=== PATIENT | female | born 1985 | race Caucasian/White ===

== ENCOUNTER 2017-01-25 09:48 | Emergency (ER) | payer OTHER ==
[2017-01-25] MEDS ORDERED: HYDROmorphone 1 MG/ML 1 ML SYRINGE IVP STA (10:01)
[2017-01-25] MEDS ORDERED: KETOROLAC 30 MG/ML 1 ML VIAL IVP STA (10:01)
[2017-01-25] MEDS ORDERED: SODIUM CHLORIDE 0.9% 1,000 ML IV STA (10:01)
[2017-01-25] MEDS ORDERED: ONDANSETRON 4 MG/2 ML VIAL IVP STA (10:01)
--- NOTE | 2017-01-25 10:03 | ED ---
Abdominal Pain HPI - General Chief Complaint: Abdominal Pain Stated Complaint: abd pain Time Seen by Provider: 01/25/17 09:53 Source: patient, RN notes reviewed Mode of arrival: ambulatory Limitations: no limitations - History of Present Illness Initial Comments: 31-year-old female presents emergency Department chief complaint of right flank pain. Patient states a sudden onset of pain. Patient states her proximal one hour ago after she urinated. Patient states that nothing seems to make painful better or worse. Patient had nausea vomiting. Denies any dysuria, hematuria, diarrhea constipation. Patient had a prior tubal ligation other abdominal surgeries. Patient denies any chest pain or shortness breath no fever no chills. - Related Data Home Medications Medication Instructions Recorded Confirmed ALPRAZolam [Xanax] 0.25 mg PO DAILY PRN 01/25/17 01/25/17 Carisoprodol [Soma] 350 mg PO TID PRN 01/25/17 01/25/17 Ergocalciferol [Vitamin D2] 50,000 unit PO TU 01/25/17 01/25/17 HYDROcodone/APAP 5-325MG [[place] 1 tab PO Q4HR PRN 01/25/17 01/25/17 5-325] Ibuprofen [Motrin] 800 mg PO Q6H PRN 01/25/17 01/25/17 Previous Rx's Medication Instructions Recorded Ketorolac [Toradol] 10 mg PO Q8HR #15 tab 01/25/17 Ondansetron Odt [Zofran Odt] 4 mg PO Q8HR PRN #10 tab 01/25/17 Allergies Allergy/AdvReac Type Severity Reaction Status Date / Time tramadol Allergy Itching Verified 01/25/17 10:18 Review of Systems ROS Statement: Those systems with pertinent positive or pertinent negative responses have been documented in the HPI. ROS Other: All systems not noted in ROS Statement are negative. Past Medical History Additional Past Medical History / Comment(s): ovarian cysts, chronic neck pain History of Any Multi-Drug Resistant Organisms: None Reported Past Surgical History: Tubal Ligation Past Psychological History: No Psychological Hx Reported Smoking Status: Never smoker Past Alcohol Use History: None Reported Past Drug Use History: None Reported General Exam Limitations: no limitations General appearance: alert, in no apparent distress Head exam: Present: atraumatic, normocephalic, normal inspection Respiratory exam: Present: normal lung sounds bilaterally. Absent: respiratory distress, wheezes, rales, rhonchi, stridor Cardiovascular Exam: Present: regular rate, normal rhythm, normal heart sounds. Absent: systolic murmur, diastolic murmur, rubs, gallop, clicks GI/Abdominal exam: Present: soft, tenderness (Mild tenderness to the right flank with the patient's area reported pain), normal bowel sounds. Absent: distended, guarding, rebound, rigid Back exam: Present: CVA tenderness (R). Absent: CVA tenderness (L) Neurological exam: Present: alert, oriented X3, CN II-XII intact Skin exam: Present: warm, dry, intact, normal color. Absent: rash Course Vital Signs 01/25/17 01/25/17 09:50 10:30 Temperature 98.2 F Pulse Rate 94 74 Respiratory 20 18 Rate Blood Pressure 141/78 129/63 O2 Sat by Pulse 100 99 Oximetry Medical Decision Making - Medical Decision Making 31-year-old female presented emergency from for right flank pain and some not. Patient's presentation appears to be related to kidney stone. There was no definite stone on CT. Patient has no evidence of acute appendicitis. There is some free fluid and flicker changes in the over a possible ovarian cyst. Patient's pain is improved at this time. Patient will be discharged with pain medication return parameters were discussed. Patient also updated on results of CT including hepatic changes, esophageal changes. Patient will follow-up with Dr. Nash for nonemergent follow-up. - Lab Data Result diagrams: 01/25/17 10:00 01/25/17 10:00 Lab Results 01/25/17 01/25/17 01/25/17 Range/Units 10:00 10:00 10:00 WBC 8.4 (3.8-10.6) k/uL RBC 4.90 (3.80-5.40) m/uL Hgb 13.2 (11.4-16.0) gm/dL Hct 40.7 (34.0-46.0) % MCV 83.2 (80.0-100.0) fL MCH 27.0 (25.0-35.0) pg MCHC 32.5 (31.0-37.0) g/dL RDW 14.5 (11.5-15.5) % Plt Count 323 (150-450) k/uL Neutrophils % 58 % Lymphocytes % 32 % Monocytes % 4 % Eosinophils % 2 % Basophils % 1 % Neutrophils # 4.9 (1.3-7.7) k/uL Lymphocytes # 2.7 (1.0-4.8) k/uL Monocytes # 0.4 (0-1.0) k/uL Eosinophils # 0.2 (0-0.7) k/uL Basophils # 0.1 (0-0.2) k/uL Sodium 141 (137-145) mmol/L Potassium 4.1 (3.5-5.1) mmol/L Chloride 105 (98-107) mmol/L Carbon Dioxide 26 (22-30) mmol/L Anion Gap 10 mmol/L BUN 16 (7-17) mg/dL Creatinine 0.57 (0.52-1.04) mg/dL Est GFR (MDRD) Af Amer >60 (>60 ml/min/1.73 sqM) Est GFR (MDRD) Non-Af >60 (>60 ml/min/1.73 sqM) Glucose 112 H (74-99) mg/dL Calcium 9.4 (8.4-10.2) mg/dL Total Bilirubin 0.6 (0.2-1.3) mg/dL AST 21 (14-36) U/L ALT 41 (9-52) U/L Alkaline Phosphatase 80 (38-126) U/L Total Protein 8.2 (6.3-8.2) g/dL Albumin 4.7 (3.5-5.0) g/dL Amylase 43 (30-110) U/L Lipase 51 (23-300) U/L Urine Color Yellow Urine Appearance Clear (Clear) Urine pH 6.0 (5.0-8.0) Ur Specific [place] 1.019 (1.001-1.035) Urine Protein Negative (Negative) Urine Glucose (UA) Negative (Negative) Urine Ketones Negative (Negative) Urine Blood Negative (Negative) Urine Nitrite Negative (Negative) Urine Bilirubin Negative (Negative) Urine Urobilinogen <2.0 (<2.0) mg/dL Ur Leukocyte Esterase Trace H (Negative) Urine WBC 1 (0-5) /hpf Ur Squamous Epith Cells 3 (0-4) /hpf Urine Mucus Rare H (None) /hpf Disposition Clinical Impression: Right flank pain Disposition: HOME SELF-CARE Condition: Stable Instructions: Flank Pain (ED) Additional Instructions: Please follow up with your primary care physician for follow-up CT for ultrasound of the liver.Please return to the Emergency Department if symptoms worsen or any other concerns. Prescriptions: Ketorolac [Toradol] 10 mg PO Q8HR #15 tab Ondansetron Odt [Zofran Odt] 4 mg PO Q8HR PRN #10 tab PRN Reason: Nausea Time of Disposition: 12:00
[2017-01-25 10:17] LABS: Basophils % (A) 1 %; CH 27.1; CHCM 32.7; Eosinophils % (A) 2 %; HCT 40.7 % (34.0-46.0); HDW 2.99; HGB 13.2 gm/dL (11.4-16.0); Luc % (Auto) 2; Lymphocytes % (A) 32 %; MCHC 32.5 g/dL (31.0-37.0); MCV 83.2 fL (80.0-100.0); Mean Platelet Volume 7.1; Monocytes % (A) 4 %; Neutrophils % (A) 58 %; RDW 14.5 % (11.5-15.5); WBC 8.4 k/uL (3.8-10.6)
[2017-01-25 10:18] LABS: Basophils # (A) 0.1 k/uL (0-0.2); Eosinophils # (A) 0.2 k/uL (0-0.7); Luc # (Auto) 0.19; Lymphocytes # (A) 2.7 k/uL (1.0-4.8); Monocytes # (A) 0.4 k/uL (0-1.0); Neutrophils # (A) 4.9 k/uL (1.3-7.7)
[2017-01-25 10:25] LABS: ALT 41 U/L (9-52); AST 21 U/L (14-36); Alkaline Phosphatase 80 U/L (38-126); Amylase 43 U/L (30-110); Anion Gap 10 mmol/L; Blood Urea Nitrogen 16 mg/dL (7-17); Calcium 9.4 mg/dL (8.4-10.2); Carbon Dioxide 26 mmol/L (22-30); Chloride 105 mmol/L (98-107); Glucose 112 mg/dL (74-99); Non-African American GFR(MDRD) >60 (>60 ml/min/1.73 sqM); Potassium 4.1 mmol/L (3.5-5.1); Sodium 141 mmol/L (137-145); Total Bilirubin 0.6 mg/dL (0.2-1.3); Total Protein 8.2 g/dL (6.3-8.2)
[2017-01-25 10:27] LABS: Appearance,Urine Clear (Clear); Bilirubin,Urine Negative (Negative); Glucose,Urine (UA) Negative (Negative); Ketones,Urine Negative (Negative); Leukocyte Esterase,Urine Trace (Negative); Mucus,Urine Rare /hpf; Nitrite,Urine Negative (Negative); Particle Count 2457; Protein,Urine Negative (Negative); Specific Gravity,Urine 1.019 (1.001-1.035); Squamous Epithelial Cell,Urine 3 /hpf (0-4); UA Billing (MACRO vs. MICRO) MICRO; Urobilinogen,Urine <2.0 mg/dL (<2.0); WBC,Urine 1 /hpf (0-5)
--- NOTE | 2017-01-25 11:05 | XR ---
Abdomen HISTORY: Abdominal pain, right lower quadrant pain Frontal view of the abdomen submitted on 2 images No comparisons Lung bases are clear. There is no pneumoperitoneum or bowel obstruction. Mild spinal curvature is not ed. No pathologic calcification evident. IMPRESSION: Nonobstructive bowel gas pattern.
[2017-01-25 11:32] VITALS: PULSE 74; RESP 18
--- NOTE | 2017-01-25 11:34 | CT ---
EXAMINATION TYPE: CT abdomen pelvis wo con DATE OF EXAM: 01/25/2017 11:20 AM COMPARISON: Radiograph same day HISTORY: 31-year-old female with RLQ pain CT DLP: 1257 mGycm. Automated exposure control for dose reduction was used. TECHNIQUE: Contiguous axial scanning of the abdomen and pelvis without IV contrast. Coronal and sagit nat reconstructions performed. FINDINGS: The heart is normal size without pericardial effusion. Mild circumferential wall thickening of the di stal esophagus. Mild dependent atelectasis at the lung bases without pleural effusion. The liver is enlarged measuring 21 cm craniocaudal with diffuse diminished attenuation. Some areas of focal fatty sparing are present such as at the gallbladder fossa. An area of increased density has a more rounded configuration measuring 3.5 cm, axial image 20. Gallbladder, adrenal glands, kidneys, spleen, and pancreas show no gross abnormality by noncontrast C T. Scattered numerous nonenlarged and some borderline enlarged mesenteric lymph nodes are present measur ing up to 6 mm. No dilated small bowel, free fluid, or free air. Most of the appendix is visualized, normal caliber. The appendiceal tip is obscured by adjacent bowel loops and right adnexal structures. Mild overall stool burden without pericolonic inflammatory change. Bladder urine distended. Uterus is visualized. Follicular changes in the ovaries. Trace cul-de-sac fr ee fluid likely physiologic. No pelvic lymphadenopathy seen. Bones: No osseous destructive process. IMPRESSION: 1. Most of the appendix is seen and appears normal. The appendiceal tip is obscured in the right adn exa and not evaluated. No convincing findings of acute appendicitis. 2. Follicular change in both ovaries. Trace cul-de-sac free fluid is likely physiologic. 3. Mild circumferential wall thickening of the distal esophagus; correlate to exclude esophagitis. 4. Hepatomegaly and marked hepatic steatosis. Correlate with LFTs, lipid profile, and patient risk f actors. A 3.5 cm area of increased density in the left liver lobe has a somewhat rounded configuratio n. Underlying mass and focal fatty sparing are considerations. Nonemergent follow-up liver ultrasound can further evaluate.
[2017-01-25 12:17] VITALS: BP 129/60; TEMP 98.3
== END 2017-01-25 12:25 | disposition home or self-care (01) ==
LOC: EC 09:48
DX: R10.9 Unspecified abdominal pain (principal); R11.2 Nausea with vomiting, unspecified; Z87.42 Personal history of other diseases of the female genital tract; Z88.5 Allergy status to narcotic agent; Z98.51 Tubal ligation status; Z79.899 Other long term (current) drug therapy
CPT/HCPCS: 99284; 96374; 96375 ×2; 96361 ×2; 36415; 80053; 82150; 83690; 85025; 81001; 74000; 74176; J2405; J1885; J1170

== ENCOUNTER → 2018-05-03 | Outpatient (CLI) | payer OTHER ==
--- NOTE | 2018-05-03 16:58 | US ---
EXAMINATION TYPE: US pelvic complete DATE OF EXAM: 05/03/2018 COMPARISON: NONE CLINICAL HISTORY: 33-year-old female N92.0 Menorrhagia with regular cycle. Patient is pending an abla tion TECHNIQUE: Transabdominal sonographic images of the pelvis were acquired. Date of LMP: 2 wks ago FINDINGS: EXAM MEASUREMENTS: Uterus: 9.1 x 4.5 x 7.3 cm Endometrial Stripe: 1.2 cm Right Ovary: 4.1 x 2.7 x 2.5 cm Left Ovary: 3.1 x 2.3 x 2.4 cm 1. Uterus: Retroverted wnl 2. Endometrium: wnl 3. Right Ovary: wnl 4. Left Ovary: wnl 5. Bilateral Adnexa: wnl 6. Posterior cul-de-sac: no free fluid seen IMPRESSION: Transabdominal scanning showing a retroverted uterus. Otherwise, no discrete abnormality.
== END | disposition home or self-care (01) ==
LOC: RADUSWWP 14:29
PROVIDERS: ATTEND Obstetrics & Gynecology
DX: N85.4 Malposition of uterus (principal)
CPT/HCPCS: 76856

== ENCOUNTER → 2018-05-31 | Outpatient (CLI) | payer OTHER ==
[2018-05-31 16:29] LABS: Basophils # (A) 0.1 k/uL (0-0.2); Basophils % (A) 1 %; Eosinophils # (A) 0.2 k/uL (0-0.7); Eosinophils % (A) 2 %; HCT 36.4 % (34.0-46.0); HGB 11.6 gm/dL (11.4-16.0); Lymphocytes # (A) 2.7 k/uL (1.0-4.8); Lymphocytes % (A) 28 %; MCH 26.1 pg (25.0-35.0); MCHC 31.7 g/dL (31.0-37.0); MCV 82.2 fL (80.0-100.0); Mean Platelet Volume 6.8; Monocytes # (A) 0.4 k/uL (0-1.0); Monocytes % (A) 5 %; Neutrophils # (A) 5.9 k/uL (1.3-7.7); Neutrophils % (A) 63 %; Platelet Count 277 k/uL (150-450); RBC 4.43 m/uL (3.80-5.40); RDW 15.1 % (11.5-15.5); WBC 9.3 k/uL (3.8-10.6)
== END | disposition home or self-care (01) ==
LOC: LABPAT 15:44
PROVIDERS: ATTEND Obstetrics & Gynecology
DX: Z01.812 Encounter for preprocedural laboratory examination (principal)
CPT/HCPCS: 36415; 85025

== ENCOUNTER 2018-06-06 07:42 | Day surgery (SDC) | payer OTHER ==
[2018-05-31 14:47] VITALS: BMI 40.9
--- NOTE | 2018-06-05 18:48 | P.HPOB ---
History of Present Illness H&P Date: 06/05/18 Chief Complaint: Menorrhagia with regular cycle This is a 33-year-old female 4 para 4 who presents for dilation and curettage with hysteroscopy and NovaSure endometrial ablation secondary to menorrhagia with regular cycle. Her menses are occurring monthly lasting 4-6 days with the second and third days very heavy. In addition she has painful menses. Her pelvic ultrasound showed a uterus measuring 9.1 x 4.5 x 7.3 cm with an endometrial stripe thickness of 1.2 cm and normal ovaries bilaterally. She would like definitive surgical treatment to control her bleeding. She has had a tubal ligation in the past. Review of Systems Constitutional: Denies chills, Denies fever Eyes: denies blurred vision, denies pain Ears, nose, mouth and throat: Denies sore throat Cardiovascular: Denies chest pain, Denies shortness of breath Respiratory: Denies cough Gastrointestinal: Denies abdominal pain, Denies diarrhea, Denies nausea, Denies vomiting Genitourinary: Reports dysmenorrhea, Reports menorrhagia Menstruation: Reports period heavy Musculoskeletal: Reports low back pain, Reports muscle cramps, Denies myalgias Integumentary: Denies pruritus, Denies rash Neurological: Reports headaches Psychiatric: Reports anxiety Endocrine: Denies fatigue, Denies weight change Past Medical History Past Medical History: Osteoarthritis (OA), Pneumonia Additional Past Medical History / Comment(s): Hx pneumonia >1 yr ago, ovarian cysts, chronic neck and lower back pain, hx gestational diabetes X1. History of Any Multi-Drug Resistant Organisms: None Reported Past Surgical History: Tubal Ligation Past Anesthesia/Blood Transfusion Reactions: No Reported Reaction Past Psychological History: Anxiety Smoking Status: Never smoker Past Alcohol Use History: None Reported Past Drug Use History: None Reported - Past Family History Mother Family Medical History: No Reported History Medications and Allergies Home Medications Medication Instructions Recorded Confirmed Type Ergocalciferol [Vitamin D2] 50,000 unit PO [id number] 01/25/17 06/02/18 History HYDROcodone/APAP 5-325MG [[place] 1 tab PO Q4HR PRN 01/25/17 06/02/18 History 5-325] Ibuprofen [Motrin] 800 mg PO Q6H PRN 01/25/17 06/02/18 History Cyclobenzaprine [Flexeril] 10 mg PO TID 05/31/18 06/02/18 History busPIRone HCL 5 mg PO TID PRN 05/31/18 06/02/18 History Allergies Allergy/AdvReac Type Severity Reaction Status Date / Time tramadol Allergy Itching Verified 06/02/18 11:06 Exam Osteopathic Statement: *. No significant issues noted on an osteopathic structural exam other than those noted in the History and Physical/Consult. HEENT: Within normal limits Heart: Regular rate and rhythm Lungs: Clear to auscultation bilaterally Abdomen: Soft, nontender Pelvic exam: Uterus is small, anteverted, with no adnexal masses or tenderness noted. Extremities: Negative Homans Assessment and Plan (1) Menorrhagia with regular cycle Status: Acute Code(s): N92.0 - EXCESSIVE AND FREQUENT MENSTRUATION WITH REGULAR CYCLE SNOMED Code(s): 545367481 Plan: Proceed with dilation and curettage with hysteroscopy and NovaSure endometrial ablation. I have discussed the risks, benefits, and alternative therapies for the above- mentioned procedure and for both sedation/anesthesia as well as necessary blood products administration, if indicated, as they pertain to this patient. The patient has indicated her understanding and acceptance of the risks and procedures discussed.
[~2018-06-06 07:42] MED LIST: DEXAMETHASONE SOD PHOSPHATE 10 MG/ML 1 ML VIAL IV ONE; HYDROmorphone 0.5 MG/0.5 ML SYRINGE IVP PRN; LACTATED RINGERS 1,000 ML IV SCH; MIDAZOLAM 2 MG/2 ML VIAL IV PRN; ONDANSETRON 4 MG/2 ML VIAL IVP ONE; Pre Op ABX Message 1 EACH MISC MISCELLANE ONE
[2018-06-06 08:02] VITALS: RESP 16
[2018-06-06] MEDS ORDERED: MIDAZOLAM 2 MG/2 ML VIAL ONE (09:38)
[2018-06-06] MEDS ORDERED: PROPOFOL 10 MG/ML 20 ML VIAL IV ONE (09:38)
[2018-06-06] MEDS ORDERED: KETOROLAC 30 MG/ML 1 ML VIAL ONE (09:38)
[2018-06-06] MEDS ORDERED: fentaNYL (PF) 50 MCG/ML 2 ML AMP ONE (09:38)
[2018-06-06] MEDS ORDERED: HYDROmorphone (PF) 1 MG/ML ONE (09:38)
[2018-06-06] MEDS ORDERED: LIDOCAINE 1% INJ 10MG/ML (20 ML MDV) ONE (09:38)
--- NOTE | 2018-06-06 10:05 | P.OP ---
Date of Procedure: 06/06/18 Preoperative Diagnosis: Menorrhagia with regular cycle Postoperative Diagnosis: Same Procedure(s) Performed: Dilation and curettage with hysteroscopy and NovaSure endometrial ablation Anesthesia: other (LMA general) Surgeon: Nohelia Szymanski Estimated Blood Loss (ml): 5 Pathology: other (Endometrial curettings) Condition: stable Disposition: same day Indications for Procedure: This is a 33-year-old female 4 para 4 who presents for dilation and curettage with hysteroscopy and NovaSure endometrial ablation secondary to menorrhagia with regular cycle. Her menses are occurring monthly lasting 4-6 days with the second and third days very heavy. In addition she has painful menses. Her pelvic ultrasound showed a uterus measuring 9.1 x 4.5 x 7.3 cm with an endometrial stripe thickness of 1.2 cm and normal ovaries bilaterally. She would like definitive surgical treatment to control her bleeding. She has had a tubal ligation in the past. Operative Findings: Uterus is sounded to 10 cm and retroverted. Cervix is sounded to 4 cm. Upon hysteroscopy a relatively uniform endometrial appearance was noted. Both tubal ostia are visualized. A moderate to large amount of endometrial curettings are obtained. No adnexal masses are palpated. Description of Procedure: The patient is taken to the operating room. She is placed in the dorsal lithotomy position after general anesthesia was given. She is prepped and draped in the normal sterile fashion. Bladder is drained with a catheter and then removed. Pelvic exam is performed under anesthesia. Uterus is found to be retroverted with no adnexal masses. She is placed in slight Trendelenburg position. A right angle retractor is used to visualize the cervix. The anterior lip of the cervix is grasped with a single-tooth tenaculum. Cervix is sounded to 4 cm. Uterus is sounded to 10 cm. Cervix is gently dilated with Sharpe dilators until a hysteroscope could be passed. Hysteroscopy is performed using normal saline. The above noted findings are noted. Next a polyp forceps is introduced. A moderate amount of tissue was obtained. Next medium-sized size sharp curette was placed. A moderate to large amount of endometrial curettings were obtained. Next NovaSure array was inserted into the endometrial cavity. Length was set at 6 cm and width was determined to be 4.8 cm. Next cavity assessment was completed and passed on the first try. Next NovaSure array was fired at 158 W for 75 seconds. Next the array was removed, inspected and then discarded. Next the hysteroscope was reinserted. Uniform charring was noted. Pictures were taken. Hysteroscope was removed. Single- tooth tenaculum was removed from the anterior lip of the cervix. Minimal bleeding was noted. All other instruments removed from the vagina. Sponge counts were correct. Patient is taken to recovery room in stable condition.
[2018-06-06 10:27] VITALS: TEMP 97.2
[2018-06-06 11:25] VITALS: BP 136/86; PULSE 83
== END 2018-06-06 11:40 | disposition home or self-care (01) ==
LOC: OR 07:42
PROVIDERS: ATTEND Obstetrics & Gynecology
DX: N92.0 Excessive and frequent menstruation with regular cycle (principal); M19.90 Unspecified osteoarthritis, unspecified site; G57.02 Lesion of sciatic nerve, left lower limb; M54.2 Cervicalgia; G89.29 Other chronic pain; F41.9 Anxiety disorder, unspecified; Z79.899 Other long term (current) drug therapy; Z88.5 Allergy status to narcotic agent; Z98.51 Tubal ligation status; Z87.42 Personal history of other diseases of the female genital tract
CPT/HCPCS: 81025; 88305; 58563; J2250; J1100; J2405; J2001; J3010; J1885; J1170; J2704

== ENCOUNTER 2020-09-12 10:03 | Emergency (ER) | payer OTHER ==
[2020-09-12 10:09] VITALS: TEMP 98.7
--- NOTE | 2020-09-12 10:34 | ED ---
General Adult HPI - General Chief complaint: Recheck/Abnormal Lab/Rx Stated complaint: L BREAST VERY PAINFUL Time Seen by Provider: 09/12/20 10:16 Source: patient, RN notes reviewed Mode of arrival: ambulatory Limitations: no limitations - History of Present Illness Initial comments: 35-year-old female presents to the emergency room for a chief complaint of left breast pain. Patient reports that he sometimes does get tenderness of the left breast. States that it has been tender for 3 days now. States it hurts when she presses on 9:00 of the left nipple as well as the inferior lateral quadrant of the left breast. Patient reports she called her DISEASE CASE MANAGER RN who recommended she come to the emergency room. Patient denies fevers or chills. Denies redness of the left breast. She denies any associated chest pain or shortness of breath.Patient has no other complaints at this time including shortness of breath, chest pain, abdominal pain, nausea or vomiting, headache, or visual changes. - Related Data Home Medications Medication Instructions Recorded Confirmed Ergocalciferol [Vitamin D2] 50,000 unit PO [id number] 01/25/17 06/02/18 HYDROcodone/APAP 5-325MG [[place] 1 tab PO Q4HR PRN 01/25/17 06/02/18 5-325] Ibuprofen [Motrin] 800 mg PO Q6H PRN 01/25/17 06/02/18 Cyclobenzaprine [Flexeril] 10 mg PO TID 05/31/18 06/02/18 busPIRone HCL 5 mg PO TID PRN 05/31/18 06/02/18 Allergies Allergy/AdvReac Type Severity Reaction Status Date / Time tramadol Allergy Itching Verified 09/12/20 10:05 Review of Systems ROS Statement: Those systems with pertinent positive or pertinent negative responses have been documented in the HPI. ROS Other: All systems not noted in ROS Statement are negative. Past Medical History Past Medical History: Pneumonia Additional Past Medical History / Comment(s): Hx pneumonia >1 yr ago, ovarian cysts, chronic neck and lower back pain, hx gestational diabetes X1. History of Any Multi-Drug Resistant Organisms: None Reported Past Surgical History: Tubal Ligation Past Anesthesia/Blood Transfusion Reactions: No Reported Reaction Past Psychological History: Anxiety Smoking Status: Former smoker Past Alcohol Use History: None Reported Past Drug Use History: None Reported - Past Family History Mother Family Medical History: No Reported History General Exam Limitations: no limitations General appearance: alert, in no apparent distress Head exam: Present: atraumatic, normocephalic, normal inspection Eye exam: Present: normal appearance, PERRL, EOMI. Absent: scleral icterus, conjunctival injection, periorbital swelling ENT exam: Present: normal exam, mucous membranes moist Neck exam: Present: normal inspection, full ROM. Absent: tenderness, meningismus, lymphadenopathy Respiratory exam: Present: normal lung sounds bilaterally, other (Patient has tenderness noted at 9:00 of the left nipple as well as the inferior lateral quadrant of the left breast. I do not palpate any nodules or masses. No erythema or evience of infection. No peau d'orange. No chest wall tenderness). Absent: respiratory distress, wheezes, rales, rhonchi, stridor Cardiovascular Exam: Present: regular rate, normal rhythm, normal heart sounds. Absent: systolic murmur, diastolic murmur, rubs, gallop, clicks GI/Abdominal exam: Present: soft, normal bowel sounds. Absent: distended, tenderness, guarding, rebound, rigid Neurological exam: Present: alert Course Vital Signs 09/12/20 10:05 Temperature 98.7 F Pulse Rate 100 Respiratory 16 Rate Blood Pressure 159/64 O2 Sat by Pulse 98 Oximetry Medical Decision Making - Medical Decision Making 35 year old female presenting for left breast pain. Physical exam is unremarkable. Patient does have tenderness at 9:00 of the left nipple as well as the inferior lateral quadrant of the left breast. There is no chest wall tenderness. Patient does not have pain with inspiration. Denies chest pain. I do not palpate any masses. There are no skin changes. No erythema or cellulitis. No peau d'orange. Ultrasound was read by Dr. Almonte. Left complete breast ultrasound was performed including all 4 quadrants, the retroareolar region and axilla. Findings demonstrate no cystic or solid lesions seen. Assessment is: BI-RAD 1. Recommend clinical management the left breast in regards to pain. This could be related to cyclic changes. At this time it was recommended the patient follow up with primary care or DISEASE CASE MANAGER RN. She will take Motrin and Tylenol for pain. She has [place] for pain. I discussed this case with attending Dr. Yuan who agrees with this assessment and treatment plan. Disposition Clinical Impression: Breast tenderness in female Disposition: HOME SELF-CARE Condition: Good Instructions (If sedation given, give patient instructions): Breast Self Exam for Women (ED) Additional Instructions: Please take Motrin and Tylenol for pain. Take your [place] as directed. Follow- up with your primary care or DISEASE CASE MANAGER RN. Return to the emergency room for any worsening symptoms. Is patient prescribed a controlled substance at d/c from ED?: No Referrals: Javier Nash MD [Primary Care Provider] - 1-2 days Nohelia Szymanski DO [Doctor of Osteopathic Medicine] - 1-2 days Time of Disposition: 11:18
--- NOTE | 2020-09-12 11:09 | USB ---
Reason for exam: clinical finding. US Breast LT Left complete breast ultrasound includes all four quadrants, the retroareolar region and axilla. Finding demonstrates no cystic or solid lesion seen. ASSESSMENT: Negative, BI-RAD 1 RECOMMENDATION: Clinical management of the left breast. Manage on a clinical basis with regard to pain.
[2020-09-12] MEDS ORDERED: KETOROLAC 15 MG/ML 1 ML VIAL IM STA (11:21)
[2020-09-12 11:52] VITALS: BP 129/81; PULSE 83; RESP 18
== END 2020-09-12 11:55 | disposition home or self-care (01) ==
LOC: EC 10:03
DX: N64.4 Mastodynia (principal); G89.29 Other chronic pain; M54.5 Low back pain; M54.2 Cervicalgia; F41.9 Anxiety disorder, unspecified; Z79.899 Other long term (current) drug therapy; Z88.5 Allergy status to narcotic agent; Z87.891 Personal history of nicotine dependence
CPT/HCPCS: 76641; 99283; 96372; J1885

== ENCOUNTER 2020-09-13 17:49 | Emergency (ER) | payer OTHER ==
[2020-09-13 17:54] VITALS: TEMP 99
[2020-09-13] MEDS ORDERED: CEPHALEXIN 500 MG CAP PO STA (18:23)
--- NOTE | 2020-09-13 18:28 | ED ---
General Adult HPI - General Chief complaint: Recheck/Abnormal Lab/Rx Stated complaint: revisit breast issue Source: patient Mode of arrival: ambulatory Limitations: no limitations - History of Present Illness Initial comments: Patient is a 35-year-old female presents emergency room in with reported left breast pain. Patient was seen in the emergency room yesterday for same com plaint. Ultrasound was performed which demonstrated no abnormal masses in the patient was discharged home with follow-up to Dr. Burch next week. States that she went home and began having red streaking over her left breast which was not present yesterday. Patient denies that she is breast-feeding. No family history of breast cancer. Denies any the nipple. No fevers or chills. No other alleviating, precipitating or modifying factors - Related Data Home Medications Medication Instructions Recorded Confirmed Ergocalciferol [Vitamin D2] 50,000 unit PO [id number] 01/25/17 06/02/18 HYDROcodone/APAP 5-325MG [[place] 1 tab PO Q4HR PRN 01/25/17 06/02/18 5-325] Ibuprofen [Motrin] 800 mg PO Q6H PRN 01/25/17 06/02/18 Cyclobenzaprine [Flexeril] 10 mg PO TID 05/31/18 06/02/18 busPIRone HCL 5 mg PO TID PRN 05/31/18 06/02/18 Previous Rx's Medication Instructions Recorded Cephalexin [Keflex] 500 mg PO Q6HR #40 cap 09/13/20 Allergies Allergy/AdvReac Type Severity Reaction Status Date / Time tramadol Allergy Itching Verified 09/13/20 17:54 Review of Systems ROS Statement: Those systems with pertinent positive or pertinent negative responses have been documented in the HPI. ROS Other: All systems not noted in ROS Statement are negative. Past Medical History Past Medical History: Pneumonia Additional Past Medical History / Comment(s): Hx pneumonia >1 yr ago, ovarian cysts, chronic neck and lower back pain, hx gestational diabetes X1. History of Any Multi-Drug Resistant Organisms: None Reported Past Surgical History: Tubal Ligation Past Anesthesia/Blood Transfusion Reactions: No Reported Reaction Past Psychological History: Anxiety Smoking Status: Former smoker Past Alcohol Use History: None Reported Past Drug Use History: None Reported - Past Family History Mother Family Medical History: No Reported History General Exam Limitations: no limitations Course Vital Signs 09/13/20 09/13/20 17:50 18:53 Temperature 99.0 F 99.0 F Pulse Rate 128 H 100 Respiratory 20 18 Rate Blood Pressure 148/87 152/94 O2 Sat by Pulse 100 100 Oximetry Medical Decision Making - Medical Decision Making Upon arrival the patient is placed into room 18. A thorough history and physical exam was performed. Evaluation does demonstrate suspected mastitis of the left breast as it is warm and reddened. She was given a dose of Keflex in the emergency room. Will be placed on Keflex the outpatient setting. She is to continue to keep her appointment with Dr. Reed next week. Return to the emergency room for any new or worsening symptoms. Patient was discharged in stable condition Disposition Clinical Impression: Breast tenderness in female, Mastitis of left breast unrelated to or Disposition: HOME SELF-CARE Condition: Stable Instructions (If sedation given, give patient instructions): Mastitis (ED) Additional Instructions: Please follow up with Dr. Derek Yuan next week. Return to the ED for any new or worsening symptoms . Prescriptions: Cephalexin [Keflex] 500 mg PO Q6HR #40 cap Is patient prescribed a controlled substance at d/c from ED?: No Referrals: Javier Nash MD [Primary Care Provider] - 1-2 days Ana Burch MD [STAFF PHYSICIAN] - 1-2 days Time of Disposition: 18:28
[2020-09-13 18:57] VITALS: BP 152/94; PULSE 100; RESP 18
== END 2020-09-13 18:57 | disposition home or self-care (01) ==
LOC: EC 17:49
DX: N61.0 Mastitis without abscess (principal); N64.4 Mastodynia; F41.9 Anxiety disorder, unspecified; Z88.5 Allergy status to narcotic agent; Z87.891 Personal history of nicotine dependence
CPT/HCPCS: 99283

== ENCOUNTER → 2020-10-24 | Outpatient (CLI) | payer OTHER ==
[2020-10-24 10:15] VITALS: BP 124/78; PULSE 86; RESP 18; TEMP 98.5
--- NOTE | 2020-10-24 10:41 | P.GSHP ---
History of Present Illness H&P Date: 10/24/20 Chief Complaint: left breast tenderness Juana is a 35 year old white female seen in consultation for Dr. Szymanski regarding left breast tenderness. The patient approximately 2 months ago noted some tenderness and swelling under her left breast. [facility] was performed of the left breast which was negative BIRADS 1. She was initially sent home with nothing however in the second day she noticed that the area of nodularity was read and extending up towards her nipple. She returned to the emergency room and at that time She was given a perscription for Keflex and took it for 10 days, and was given a prescription from her primary care doctor for an additional 10 days. She has been off this for a least a week. She had a low-grade fever on her second ER visit. The patient states the nodularity has resolved however, the nipple is still very tender. She had a breast exam this week and she stated she did not feel any lumps however the nipple area was calender wind up tender. Tenderness is improving but has not resolved. She has never had anything like this in the past and has never had a mammogram in the past. She is not complaining of any nipple discharge. 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 Caffeine: 6 cups of mountain dew a day/ has stopped this nicotine: none antonino-bromine: occasional Family History: maternal grandmother: breast cancer paternal grandfather: prostate cancer paternal grandmother: lung cancer HormonaL History: menarche: 12 , breast fed: no, age at first : 18 periods: spotting, had an ablation and tubaligation BCP; 2 years in remote past hormones: none Surgical history: Uterine ablation/tubal ligation Medical history: asthma obesity pinched nerve in neck and back Social History: nicotine: none alcohol: occasional drugs: Marijuana occasional, or anxiety - Constitutional Constitutional: Denies chills, Denies fever - EENT Comment: had a piercing done for migraines and it has helped Eyes: bilateral blurred vision (occasional may need glasses) Ears: bilateral: decreased hearing Ears, nose, mouth and throat: Reports headache - Breasts Breasts: bilateral: as per HPI - Cardiovascular Cardiovascular: Denies chest pain, Denies shortness of breath - Respiratory Comment: asthma - Gastrointestinal Gastrointestinal: Reports diarrhea, Denies abdominal pain, Denies nausea, Denies vomiting - Genitourinary (Female) Genitourinary: Reports kidney stones, Denies dysuria, Denies hematuria - Menstruation Menstruation: Reports period spotting - Musculoskeletal Musculoskeletal: Reports as per HPI - Integumentary Integumentary: Denies pruritus, Denies rash - Neurological Comment: right ankle numb and weak - Psychiatric Psychiatric: Reports anxiety - Endocrine Endocrine: Reports weight change - Hematologic/Lymphatic Comment: none - Allergic/Immunologic Allergic/Immunologic: Reports as per HPI Past Medical History Past Medical History: Pneumonia Additional Past Medical History / Comment(s): Hx pneumonia >1 yr ago, ovarian cysts, chronic neck and lower back pain, hx gestational diabetes X1. History of Any Multi-Drug Resistant Organisms: None Reported Past Surgical History: Tubal Ligation Past Anesthesia/Blood Transfusion Reactions: No Reported Reaction Past Psychological History: Anxiety Smoking Status: Former smoker Past Alcohol Use History: None Reported Past Drug Use History: None Reported - Past Family History Mother Family Medical History: No Reported History Medications and Allergies Home Medications Medication Instructions Recorded Confirmed Type Ergocalciferol [Vitamin D2] 50,000 unit PO [id number] 01/25/17 10/24/20 History HYDROcodone/APAP 5-325MG [[place] 1 tab PO Q4HR PRN 01/25/17 10/24/20 History 5-325] Ibuprofen [Motrin] 800 mg PO Q6H PRN 01/25/17 10/24/20 History Albuterol Inhaler [Ventolin Hfa 2 puff INHALATION ONCE 10/24/20 10/24/20 History Inhaler] Albuterol Nebulized [Ventolin 1.25 mg INHALATION DAILY 10/24/20 10/24/20 History Nebulized] Budesonide/Formoterol Fumarate 1 puff INHALATION DAILY 10/24/20 10/24/20 History [Symbicort 80-4.5 Mcg Inhaler] clonazePAM [KlonoPIN] 1 mg PO BID 10/24/20 10/24/20 History Allergies Allergy/AdvReac Type Severity Reaction Status Date / Time tramadol Allergy Itching Verified 10/24/20 10:09 Surgical - Exam BMI 35.7 - General obese - Eyes normal ocular movement - ENT normal pinna, normal nares - Neck no masses, trachea midline - Respiratory normal expansion, normal respiratory effort, clear to auscultation - Cardiovascular Rhythm: regular Heart Sounds: normal: S1, S2 - Abdomen Abdomen: soft, bowel sounds - Integumentary normal turgor - Neurologic no disoriented, no combative - Musculoskeletal normal gait - Psychiatric oriented to time, oriented to person, oriented to place, speech is normal, memory intact breast exam: BRA: sports bra XL inspection: grade three ptosis, no evidence of mastitis on today's exam Palpation: Right breast: Multiple positional exam fibrocystic changes, no dominant masses or nodules of concern, Right axilla: No adenopathy of concern Left breast: Multi-positional exam no dominant masses or nodules of concern, there was a small cleft in the left nipple area which appears to be a variant of normal, mild tenderness periareolar region on the left Left axilla: No adenopathy of concern Under each breast there is some mild fungal infection Results Ultrasound results reviewed Assessment and Plan Assessment: Impression: 1. Fibrocystic breast changes 2. Resolved left breast mastitis 3. Mild fungal infection under both breasts 4. Anxiety 5. Pinched nerve neck and back 6. Uterine ablation patient has some spotting now may have some hormonal changes Plan: 1. Nystatin cream for fungal infection 2. Patient has stopped drinking Mountain Dew will continue to stay away from this 3. Both given to patient regarding breast pain 4. If pain returns would like see patient back 5. Mammogram has been ordered by Dr. Szymanski this will be reviewed after it is done Cc: Dr. Szymanski Encounter 45 minutes, time spent in reviewing medical records, physical examination, and counseling.
== END | disposition home or self-care (01) ==
LOC: WWCWWP 09:49
PROVIDERS: ATTEND Surgery
DX: Z53.9 Procedure and treatment not carried out, unspecified reason (principal)

== ENCOUNTER 2021-09-08 19:32 | Emergency (ER) | payer OTHER ==
[2021-09-08 20:53] VITALS: BP 144/75; PULSE 94; RESP 18; TEMP 98.2
--- NOTE | 2021-09-08 21:21 | ED ---
General Adult HPI - General Chief complaint: Abdominal Pain Stated complaint: Lump on stomach,Abd pain Time Seen by Provider: 09/08/21 20:10 Source: patient, RN notes reviewed, old records reviewed Mode of arrival: ambulatory Limitations: no limitations - History of Present Illness Initial comments: 36-year-old tearful female, alert and oriented 4, presents to the emergency room with complaints of upper abdominal pain. Patient states that she seen her primary care doctor Dr. Nash yesterday and he scheduled her an ultrasound which is not scheduled until next week. She states that she is concerned for mass and has been increasingly anxious. She states that the pain has increased since Tuesday but lump has been present for 3 weeks. She denies any injury. She states that she has no nausea vomiting diarrhea or fevers. She has had decrease in appetite but states that she has anxiety. She states that she was told that the pain increases come to the emergency room. -: week(s) (3) Location: abdomen Radiation: non-radiation Quality: sharp Consistency: constant Improves with: immobilization, other (standing) Worsens with: other (sitting up) Associated Symptoms: denies other symptoms Treatments Prior to Arrival: none - Related Data Home Medications Medication Instructions Recorded Confirmed Ergocalciferol [Vitamin D2] 50,000 unit PO [id number] 01/25/17 10/24/20 HYDROcodone/APAP 5-325MG [[place] 1 tab PO Q4HR PRN 01/25/17 10/24/20 5-325] Ibuprofen [Motrin] 800 mg PO Q6H PRN 01/25/17 10/24/20 Albuterol Inhaler [Ventolin Hfa 2 puff INHALATION ONCE 10/24/20 10/24/20 Inhaler] Albuterol Nebulized [Ventolin 1.25 mg INHALATION DAILY 10/24/20 10/24/20 Nebulized] Budesonide/Formoterol Fumarate 1 puff INHALATION DAILY 10/24/20 10/24/20 [Symbicort 80-4.5 Mcg Inhaler] clonazePAM [KlonoPIN] 1 mg PO BID 10/24/20 10/24/20 Allergies Allergy/AdvReac Type Severity Reaction Status Date / Time tramadol Allergy Itching Verified 09/08/21 20:53 Review of Systems ROS Statement: Those systems with pertinent positive or pertinent negative responses have been documented in the HPI. ROS Other: All systems not noted in ROS Statement are negative. Past Medical History Past Medical History: Pneumonia Additional Past Medical History / Comment(s): Hx pneumonia >1 yr ago, ovarian cysts, chronic neck and lower back pain, hx gestational diabetes X1. History of Any Multi-Drug Resistant Organisms: None Reported Past Surgical History: Tubal Ligation Past Anesthesia/Blood Transfusion Reactions: No Reported Reaction Past Psychological History: Anxiety Smoking Status: Former smoker Past Alcohol Use History: None Reported Past Drug Use History: Marijuana - Past Family History Mother Family Medical History: No Reported History General Exam Limitations: no limitations General appearance: alert, in no apparent distress Head exam: Present: atraumatic, normocephalic, normal inspection Eye exam: Present: EOMI, conjunctival injection, other (Patient crying) ENT exam: Present: normal exam, mucous membranes moist Neck exam: Present: normal inspection, full ROM. Absent: tenderness, meningismus, lymphadenopathy Respiratory exam: Present: normal lung sounds bilaterally. Absent: respiratory distress, wheezes, rales, rhonchi, stridor, chest wall tenderness, accessory muscle use Cardiovascular Exam: Present: regular rate, normal rhythm, normal heart sounds. Absent: systolic murmur, diastolic murmur, rubs, gallop, clicks GI/Abdominal exam: Present: soft, tenderness, normal bowel sounds, mass (soft circular mass approx 2cm) Extremities exam: Present: normal inspection, full ROM, normal capillary refill. Absent: tenderness, pedal edema, joint swelling, calf tenderness Back exam: Present: normal inspection, full ROM. Absent: tenderness, CVA tenderness (R), CVA tenderness (L) Neurological exam: Present: alert, oriented X3, normal gait Psychiatric exam: Present: normal affect, normal mood Skin exam: Present: warm, dry, intact, normal color. Absent: rash, cyanosis, diaphoretic, petechiae, pallor Course Vital Signs 09/08/21 20:49 Temperature 98.2 F Pulse Rate 94 Respiratory 18 Rate Blood Pressure 144/75 O2 Sat by Pulse 100 Oximetry Medical Decision Making - Medical Decision Making 36-year-old female presents to the emergency room with complaints of upper abdominal pain. Patient states that she seen Dr. Nash yesterday and he scheduled her an ultrasound which is not scheduled until next week. She states that she is concerned for mass and has been increasingly anxious. She states that the pain has increased since Tuesday but lump has been present for 3 week s. She states that she has no nausea vomiting diarrhea or fevers. Her abdomen is soft. Ultrasound abdomen shows an Ill-Defined Isoechoic Area Measuring 3.1 x 3.6 x 1.6. This Is an Oval-Shaped Solid Mass That Is Superficial and Could Be a Lipoma. Patient will be directed to follow up with her primary care doctor for continuation of care. Patient is agreeable to this plan of care. Case dis cussed with Dr. Samuels Disposition Clinical Impression: Lipoma Disposition: HOME SELF-CARE Condition: Good Instructions (If sedation given, give patient instructions): Lipoma (ED) Additional Instructions: Follow-up with the primary care doctor this week. Return to the emergency room with any new or worsening symptoms. Is patient prescribed a controlled substance at d/c from ED?: No Referrals: Javier Nash MD [Primary Care Provider] - 1-2 days Time of Disposition: 23:23
--- NOTE | 2021-09-08 23:14 | US ---
EXAMINATION TYPE: US abdomen limited DATE OF EXAM: 09/08/2021 COMPARISON: CT CLINICAL HISTORY: upper abdominal pain hernia. Pain, patient feels lump within the abdomen. Per order ing physician, evaluate palpable superficial area, not a RUQ exam. Scanned palpable area within the midline epigastric/slightly right abdomen where patient is concerned . Ill-defined isoechoic area with some vascularity is seen at the area of pain/concern. This area measu res 3.1 x 3.6 x 1.6 cm. Slightly hypoechoic border seen in areas of periphery. IMPRESSION: There is oval-shaped solid mass in the area of concern which is superficial in the epigas tric region. This could be a lipoma.
== END 2021-09-09 00:03 | disposition home or self-care (01) ==
LOC: EC 19:32
DX: D17.5 Benign lipomatous neoplasm of intra-abdominal organs (principal); Z88.6 Allergy status to analgesic agent; Z87.891 Personal history of nicotine dependence
CPT/HCPCS: 76705; 99284

== ENCOUNTER → 2022-12-22 | Outpatient (CLI) | payer OTHER ==
[2022-12-23 03:06] LABS: Gliadin AB IgA, Deaminated NEGATIVE (NEGATIVE); Gliadin AB IgA, Unit 1.7 U/mL; Gliadin AB IgG, Deaminated NEGATIVE (NEGATIVE); Gliadin AB IgG, Unit <0.4 U/mL
== END | disposition home or self-care (01) ==
LOC: LABWHC1 11:16
PROVIDERS: ATTEND Nurse Practitioner Family
DX: K52.9 Noninfective gastroenteritis and colitis, unspecified (principal)
CPT/HCPCS: 36415; 83516; 85652; 86140

== ENCOUNTER 2023-03-17 17:54 | Emergency (ER) | payer OTHER ==
[2023-03-17 18:59] VITALS: BP 131/86; PULSE 107; RESP 20; TEMP 98.3
[2023-03-17] MEDS ORDERED: DIPH,PERTUS(ACELL)TETVAC-LF 0.5 ML VIAL IM ONE (20:09)
[2023-03-17] MEDS ORDERED: AMOXIC-POT CLAV 875-125MG 1 EACH TAB PO STA (20:10)
--- NOTE | 2023-03-17 21:44 | XR ---
PROCEDURE: XR hand complete RT - 3V DATE AND TIME: 03/17/2023 8:24 PM CLINICAL INDICATION: PHH; dog bite TECHNIQUE: Department protocol COMPARISON: None FINDINGS: There is no fracture or malalignment. The soft tissues are unremarkable. No radiopaque foreign body or soft tissue emphysema. IMPRESSION: NO ACUTE PROCESS.
--- NOTE | 2023-03-17 22:21 | ED ---
Animal Bite HPI - General Chief Complaint: Animal Bite Stated Complaint: Dog Bite R Hand Time Seen by Provider: 03/17/23 19:39 Source: patient Mode of arrival: ambulatory Limitations: no limitations - History of Present Illness Initial Comments: 38-year-old female presenting with chief complaint of dog bite. Patient was a family dog on the right hand. There are several puncture wounds. He should has full range of motion of the fingers. Unsure of when her last tetanus was. No numbness, tingling, weakness. - Related Data Home Medications Medication Instructions Recorded Confirmed Ergocalciferol [Vitamin D2] 50,000 unit PO [id number] 01/25/17 10/24/20 HYDROcodone/APAP 5-325MG [[place] 1 tab PO Q4HR PRN 01/25/17 10/24/20 5-325] Ibuprofen [Motrin] 800 mg PO Q6H PRN 01/25/17 10/24/20 Albuterol Inhaler [Ventolin Hfa 2 puff INHALATION ONCE 10/24/20 10/24/20 Inhaler] Albuterol Nebulized [Ventolin 1.25 mg INHALATION DAILY 10/24/20 10/24/20 Nebulized] Budesonide/Formoterol Fumarate 1 puff INHALATION DAILY 10/24/20 10/24/20 [Symbicort 80-4.5 Mcg Inhaler] clonazePAM [KlonoPIN] 1 mg PO BID 10/24/20 10/24/20 Previous Rx's Medication Instructions Recorded Amoxic-Pot Clav 875-125Mg 1 tab PO Q12HR 7 Days #14 tab 03/17/23 [Augmentin 875-125] Allergies Allergy/AdvReac Type Severity Reaction Status Date / Time tramadol Allergy Itching Verified 03/17/23 19:00 Review of Systems ROS Statement: Those systems with pertinent positive or pertinent negative responses have been documented in the HPI. ROS Other: All systems not noted in ROS Statement are negative. Past Medical History Past Medical History: Pneumonia Additional Past Medical History / Comment(s): Hx pneumonia >1 yr ago, ovarian cysts, chronic neck and lower back pain, hx gestational diabetes X1. History of Any Multi-Drug Resistant Organisms: None Reported Past Surgical History: Tubal Ligation Past Anesthesia/Blood Transfusion Reactions: No Reported Reaction Past Psychological History: Anxiety Smoking Status: Former smoker, Vaper Past Alcohol Use History: None Reported Past Drug Use History: Marijuana - Past Family History Mother Family Medical History: No Reported History General Exam Limitations: no limitations General appearance: alert, in no apparent distress Head exam: Present: atraumatic, normocephalic, normal inspection Eye exam: Present: normal appearance, EOMI. Absent: scleral icterus, periorbital swelling Neck exam: Present: normal inspection, full ROM Neurological exam: Present: alert, oriented X3, CN II-XII intact Psychiatric exam: Present: normal affect, normal mood Skin exam: Present: warm, dry, normal color. Absent: intact (There are 3 puncture wounds to the right hand secondary to dog bite), rash Course Vital Signs 03/17/23 18:57 Temperature 98.3 F Pulse Rate 107 H Respiratory 20 Rate Blood Pressure 131/86 O2 Sat by Pulse 99 Oximetry Medical Decision Making - Medical Decision Making Was pt. sent in by a medical professional or institution (, PA, HAND STRAIGHTENER, urgent care, hospital, or fpc...) When possible be specific @ -No Did you speak to anyone other than the patient for history (EMS, parent, family, police, friend...)? What history was obtained from this source @ -No Did you review nursing and triage notes (agree or disagree)? Why? @ -I reviewed and agree with nursing and triage notes Were old charts reviewed (outside hosp., previous admission, EMS record, old EKG, old radiological studies, urgent care reports/EKG's, fpc records)? Report findings @ -No old charts were reviewed Differential Diagnosis (chest pain, altered mental status, abdominal pain women, abdominal pain men, vaginal bleeding, weakness, fever, dyspnea, syncope, headache, dizziness, GI bleed, back pain, seizure, CVA, palpatations, mental health, musculoskeletal)? @ -Differential Musculoskeletal Muscular strain, contusion, ligament sprain, fracture, arthritis, septic arthritis, bursitis, cellulitis, muscle spasm, nerve compression, DVT, arterial occlusion, herpes zoster, electrolyte abnormality, tumor.... This is not meant to be in all inclusive list EKG interpreted by me (3pts min.). @ -As above X-rays interpreted by me (1pt min.). @ -X-rays shows no acute process CT interpreted by me (1pt min.). @ -None done U/S interpreted by me (1pt. min.). @ -None done What testing was considered but not performed or refused? (CT, X-rays, U/S, lab s)? Why? @ -None What meds were considered but not given or refused? Why? @ -None Did you discuss the management of the patient with other professionals (professionals i.e. Dr., PA, HAND STRAIGHTENER, lab, RT, psych nurse, social welfare research worker, pararescue craftsman, teacher, lead security officer, porter sample case)? Give summary @ -No Was smoking cessation discussed for >3mins.? @ -No Was critical care preformed (if so, how long)? @ -No Were there social determinants of health that impacted care today? How? (Homelessness, low income, unemployed, alcoholism, drug addiction, transportation, low edu. Level, literacy, decrease access to med. care, shelter, rehab)? @ -No Was there de-escalation of care discussed even if they declined (Discuss DNR or withdrawal of care, Hospice)? DNR status @ -No What co-morbidities impacted this encounter? (DM, HTN, Smoking, COPD, CAD, Cancer, CVA, ARF, Chemo, Hep., AIDS, mental health diagnosis, sleep apnea, morbid obesity)? @ -None Was patient admitted / discharged? Hospital course, mention meds given and route, prescriptions, significant lab abnormalities, going to OR and other pertinent info. @ -38-year-old female presented with chief complaint abdominal pain to the right hand. Unsure of her last tetanus was, tetanus is updated today. Dog is a family dog and is up-to-date on vaccinations. X-rays obtained which shows no acute process. She is educated on wound care and signs of infection. She started on Augmentin. Follow-up with PCP. Report back to ER with any new or worsening symptoms. Discussed return parameters and answered all questions. Patient conveyed verbal understanding and agreed to the plan. I discussed this case in detail with my attending Dr. Almanzar Undiagnosed new problem with uncertain prognosis? @ -No Drug Therapy requiring intensive monitoring for toxicity (Heparin, Nitro, Insulin, Cardizem)? @ -No Were any procedures done? @ -No Diagnosis/symptom? @ -Dog bite Acute, or Chronic, or Acute on Chronic? @ -Acute Uncomplicated (without systemic symptoms) or Complicated (systemic symptoms)? @ -Uncomplicated Side effects of treatment? @ -No Exacerbation, Progression, or Severe Exacerbation? @ -No Poses a threat to life or bodily function? How? (Chest pain, [place], [place], pneumonia, PE, COPD, DKA, ARF, appy, cholecystitis, CVA, Diverticulitis, Homicidal, Suicidal, threat to staff... and all critical care pts) @ -No Disposition Clinical Impression: Dog bite Disposition: HOME SELF-CARE Condition: Good Instructions (If sedation given, give patient instructions): Animal Bite (ED) Additional Instructions: Follow-up with PCP. Report back to ER with any new or worsening symptoms. Take medication as prescribed. Take Motrin and Tylenol stated for pain control. Monitor for signs of infection, including but not limited to redness, swelling, warmth, tenderness, discharge. Cleanse daily with soap and water. Prescriptions: Amoxic-Pot Clav 875-125Mg [Augmentin 875-125] 1 tab PO Q12HR 7 Days #14 tab Is patient prescribed a controlled substance at d/c from ED?: No Referrals: Javier Nash MD [Primary Care Provider] - 1-2 days Time of Disposition: 22:20
== END 2023-03-17 22:31 | disposition home or self-care (01) ==
LOC: EC 17:54
DX: S61.451A Open bite of right hand, initial encounter (principal); F12.90 Cannabis use, unspecified, uncomplicated; F17.290 Nicotine dependence, other tobacco product, uncomplicated; Z86.59 Personal history of other mental and behavioral disorders; Z88.8 Allergy status to other drugs, medicaments and biological substances; Z23 Encounter for immunization; W54.0XXA Bitten by dog, initial encounter
CPT/HCPCS: 90471; 90715; 99283

== ENCOUNTER → 2025-04-16 | Outpatient (CLI) | payer OTHER ==
--- NOTE | 2025-04-16 15:39 | CT ---
EXAMINATION TYPE: CT abdomen pelvis wo con CT DLP: 812 mGycm, Automated exposure control for dose reduction was used. DATE OF EXAM: 04/16/2025 3:28 PM COMPARISON: Abdominal ultrasound 09/08/2021, pelvic ultrasound 05/03/2018, CT abdomen and pelvis 01/26/20 CLINICAL INDICATION:Female, 40 years old with history of R10.31 RLQ PAIN R10.2 PELVIC PAIN; RLQ pain. TECHNIQUE: Standard CT of the abdomen and pelvis without IV or oral contrast. Lack of IV or oral co ntrast limits evaluation of solid and hollow organ viscera. Coronal and sagittal reformats were perfo rmed. FINDINGS: LOWER CHEST: Unremarkable noncontrast appearance ABDOMEN LIVER: There are 2 stable hypodense lesions within the anterior left hepatic lobe measuring 3.5 and 3 .9 cm (series 3, image 42 and 40 respectively). GALLBLADDER AND BILE DUCTS: Unremarkable noncontrast appearance PANCREAS: Unremarkable noncontrast appearance SPLEEN: Unremarkable noncontrast appearance ADRENAL GLANDS: Unremarkable noncontrast appearance. KIDNEYS AND URETERS: No evidence of hydronephrosis or renal calculus. The ureters are unremarkable. PELVIS BLADDER: Unremarkable REPRODUCTIVE: Bulky retroverted uterus. Possible right ovarian 3.9 cm lesion. ABDOMEN & PELVIS STOMACH AND BOWEL: Stomach and duodenum are unremarkable. No focal bowel wall thickening or surroundi ng inflammatory changes. The appendix is within normal limits. No evidence of bowel obstruction. PERITONEUM: No evidence of pneumoperitoneum or free fluid. VASCULATURE: No evidence of aortic aneurysm. Few pelvic phleboliths. MUSCULOSKELETAL: No acute osseous abnormalities. No aggressive osseous lesion. LYMPH NODES: No gross evidence for lymphadenopathy. SOFT TISSUE/ABDOMINAL WALL: Unremarkable IMPRESSION: 1. No CT evidence for acute abdominal/pelvic process within the limitations of a noncontrast exam. 2. Questionable right ovarian 3.9 cm lesion. Recommend further evaluation with pelvic ultrasound. 3. There are 2 relatively stable lesions within the left hepatic lobe from prior CT in 2017. These ar e nonspecific but could represent hemangiomas versus adenomas versus other etiologies. Stability sugg ests benign lesions. This can be further evaluated with MR abdomen with IV contrast (liver mass melva col) as clinically indicated. [facility], , 04/16/2025 3:37 PM
== END | disposition home or self-care (01) ==
LOC: RADCTMAIN 15:07
PROVIDERS: ATTEND Family Medicine
DX: K76.89 Other specified diseases of liver (principal)
CPT/HCPCS: 74176

== ENCOUNTER 2025-04-17 06:19 | Emergency (ER) | payer OTHER ==
[2025-04-17 06:23] VITALS: TEMP 97.8
--- NOTE | 2025-04-17 06:35 | ED ---
Abdominal Pain HPI - General Chief Complaint: Abdominal Pain Stated Complaint: Abd Pain Time Seen by Provider: 04/17/25 06:25 Source: patient, RN notes reviewed Mode of arrival: ambulatory Limitations: no limitations - History of Present Illness Initial Comments: This is a 40-year-old female who presents to the emergency department for pelvic pain, nausea, and vomiting. States that it started 5 days ago. The pain is worse on the right side. States that it is intermittent. However, her largest issue is currently the vomiting. She had an outpatient CT scan done here yesterday to rule out appendicitis. States that they found a right-sided ovaria n cyst, however her appendix and bowels otherwise looked normal. States that since earlier this morning she has been unable to control the vomiting. She is taking Zofran, but states that she continues to vomit it back up. MD Complaint: abdominal pain - Related Data Home Medications Medication Instructions Recorded Confirmed Ergocalciferol [Vitamin D2] 50,000 unit PO [id number] 01/25/17 10/24/20 HYDROcodone/APAP 5-325MG [[place] 1 tab PO Q4HR PRN 01/25/17 10/24/20 5-325] Ibuprofen [Motrin] 800 mg PO Q6H PRN 01/25/17 10/24/20 Albuterol Inhaler [Ventolin Hfa 2 puff INHALATION ONCE 10/24/20 10/24/20 Inhaler] Albuterol Nebulized [Ventolin 1.25 mg INHALATION DAILY 10/24/20 10/24/20 Nebulized] Budesonide/Formoterol Fumarate 1 puff INHALATION DAILY 10/24/20 10/24/20 [Symbicort 80-4.5 Mcg Inhaler] clonazePAM [KlonoPIN] 1 mg PO BID 10/24/20 10/24/20 Previous Rx's Medication Instructions Recorded Amoxic-Pot Clav 875-125Mg 1 tab PO Q12HR 7 Days #14 tab 03/17/23 [Augmentin 875-125] Ketorolac [Toradol] 10 mg PO Q6HR PRN #15 tab 04/17/25 Promethazine Suppository 12.5 mg RECTAL Q6H PRN #14 04/17/25 [Phenergan] suppositor Promethazine [Phenergan] 25 mg PO Q6HR PRN #20 tablet 04/17/25 Allergies Allergy/AdvReac Type Severity Reaction Status Date / Time tramadol Allergy Itching Verified 04/17/25 06:23 Review of Systems ROS Statement: Those systems with pertinent positive or pertinent negative responses have been documented in the HPI. ROS Other: All systems not noted in ROS Statement are negative. Past Medical History Past Medical History: Hypertension, Pneumonia Additional Past Medical History / Comment(s): Hx pneumonia >1 yr ago, ovarian cysts, chronic neck and lower back pain, hx gestational diabetes X1. History of Any Multi-Drug Resistant Organisms: None Reported Past Surgical History: Tubal Ligation Past Anesthesia/Blood Transfusion Reactions: No Reported Reaction Past Psychological History: Anxiety Smoking Status: Former smoker, Vaper Past Alcohol Use History: None Reported Past Drug Use History: Marijuana - Past Family History Mother Family Medical History: No Reported History General Exam Limitations: no limitations General appearance: alert, in no apparent distress Head exam: Present: atraumatic, normocephalic, normal inspection Respiratory exam: Present: normal lung sounds bilaterally. Absent: respiratory distress, wheezes, rales, rhonchi, stridor Cardiovascular Exam: Present: regular rate, normal rhythm GI/Abdominal exam: Present: soft, tenderness (RLQ). Absent: distended Neurological exam: Present: alert, oriented X3, CN II-XII intact Psychiatric exam: Present: normal affect, normal mood Skin exam: Present: warm, dry, intact, normal color. Absent: rash Course Vital Signs 04/17/25 04/17/25 04/17/25 06:21 07:20 08:43 Temperature 97.8 F Pulse Rate 91 80 Respiratory 18 16 16 Rate Blood Pressure 127/86 116/78 O2 Sat by Pulse 100 100 Oximetry Medical Decision Making - Medical Decision Making This is a 40-year-old female who presents to the emergency department for abdominal pain, nausea, and vomiting. Was pt. sent in by a medical professional or institution? @ -No Did you speak to anyone other than the patient for history? @ -No Did you review nursing and triage notes? @ -Yes, and I agree, it is accurate with regards to the patient's symptoms. Were old charts reviewed? @ -CT scan of the abdomen and pelvis obtained on 04/16/2025 revealing no acute intra-abdominal process. She does have a questionable right ovarian 3.9 cm lesion and they advised further evaluation with a pelvic ultrasound. She also has stable lesions in the left hepatic lobe. Differential Diagnosis? @ -Differential Abdominal Pain Women: Appendicitis, Cholecystitis, diverticulosis, ischemic bowel, pancreatitis, hepatitis, UTI, gastroenteritis, AAA, incarcerated hernia, bowel obstruction, constipation, inflammatory bowel, hepatitis, peptic ulcer disease, splenic infarction, perforated viscus, vulvitis, ovarian torsion, PID, kidney stone, placenta abruption, this is not meant to be an all-inclusive list EKG interpreted by me (3pts min.)? @ -Not obtained X-rays interpreted by me (1pt min.)? @ -Not obtained CT interpreted by me (1pt min.)? @ -Not obtained U/S interpreted by me (1pt. min.)? @ -Transvaginal ultrasound obtained. My interpretation identifies no evidence of an ovarian torsion. What testing was considered but not performed? (CT, X-rays, U/S, labs)? Why? @ -None What meds were considered but not given? Why? @ -None Did you discuss the management of the patient with other professionals? @ -No Did you reconcile home meds? @ -No Was smoking cessation discussed for >3mins.? @ -No Was critical care preformed (if so, how long)? @ -No Were there social determinants of health that impacted care today? How? (Homelessness, low income, unemployed, alcoholism, drug addiction, transportation, low edu. Level, literacy, decrease access to med. care, usp, rehab)? @ -No Was there de-escalation of care discussed even if they declined? (Discuss DNR or withdrawal of care, Hospice)? @ -No What co-morbidities impacted this encounter? (DM, HTN, Smoking, COPD, CAD, Cancer, CVA, Hep., AIDS, mental health diagnosis, sleep apnea, morbid obesity)? @ -None Was patient admitted / discharged? @ -Discharged. Lab work unremarkable. Urinalysis negative for signs of i nfection. CT scan of the abdomen and pelvis obtained yesterday revealed a right ovarian lesion and follow-up ultrasound was advised. Otherwise no acute intra- abdominal process was identified. Transvaginal ultrasound demonstrates that the right ovary is twice the size of the left. However, there is normal arterial/venous flow and the size is still within the normal range. She does also have a retroverted uterus with myometrial heterogenicity suggesting diffuse small fibroid change or adenomyosis. Findings reviewed with the patient. Symptoms managed in the emergency department. The pain was not her primary concern, it was more so the nausea and vomiting. Advised that she does need to follow-up with an TRAINING ENGINEER regarding these US findings and she advised that she will follow-up with her PCP and they have been discussing referrals. She already has Zofran at home for nausea. Phenergan was prescribed along with Toradol for pain control. Patient discharged home in stable condition. Case discussed with ED attending Dr. Martínez. Undiagnosed new problem with uncertain prognosis? @ -None Drug Therapy requiring intensive monitoring for toxicity (Heparin, Nitro, Insulin, Cardizem)? @ -None Were any procedures done? @ -None Diagnosis/symptom? @ -Nausea and vomiting, pelvic pain Acute, or Chronic, or Acute on Chronic? @ -Acute Uncomplicated (without systemic symptoms) or Complicated (systemic symptoms)? @ -Uncomplicated Side effects of treatment? @ -None Exacerbation, Progression, or Severe Exacerbation] @ -Not applicable Poses a threat to life or bodily function? @ -No - Lab Data Result diagrams: 04/17/25 06:40 04/17/25 06:40 Lab Results 04/17/25 04/17/25 04/17/25 Range/Units 06:40 06:40 06:40 WBC 8.10 (4.50-10.00) 10*3/uL RBC 4.82 (4.10-5.20) 10*6/uL Hgb 14.7 (12.0-15.0) g/dL Hct 41.6 (37.2-46.3) % MCV 86.3 (80.0-97.0) fL MCH 30.5 (27.0-32.0) pg MCHC 35.3 (32.0-37.0) g/dL Plt Count 258 (140-440) 10*3/uL MPV 10.1 (9.5-12.2) fL Immature Gran % (Auto) 0.2 % Neutrophils % 74.4 % Lymphocytes % 20.7 % Monocytes % 3.6 % Eosinophils % 0.5 % Basophils % 0.6 % Immature Gran # 0.02 (0.00-0.04) 10*3/uL Neutrophils # 6.02 (1.80-7.70) 10*3/uL Lymphocytes # 1.68 (0.90-5.00) 10*3/uL Monocytes # 0.29 (0.20-1.00) 10*3/uL Eosinophils # 0.04 (0.04-0.35) 10*3/uL Basophils # 0.05 (0.00-0.10) 10*3/uL Sodium 138 (137-145) mmol/L Potassium 4.1 (3.5-5.1) mmol/L Chloride 107 (98-107) mmol/L Carbon Dioxide 19 L (22-30) mmol/L Anion Gap 12 mmol/L BUN 8 (7-17) mg/dL Creatinine 0.51 L (0.52-1.04) mg/dL Est GFR (CKD-EPI)AfAm >90 (>60 ml/min/1.73 sqM) Est GFR (CKD-EPI)NonAf >90 (>60 ml/min/1.73 sqM) Glucose 129 H (74-99) mg/dL Plasma Lactic Acid Dandre 1.4 (0.7-2.0) mmol/L Calcium 9.5 (8.4-10.2) mg/dL Total Bilirubin 1.0 (0.2-1.3) mg/dL AST 26 (14-36) U/L ALT 16 (4-34) U/L Alkaline Phosphatase 61 (38-126) U/L Total Protein 7.5 (6.3-8.2) g/dL Albumin 4.7 (3.5-5.0) g/dL Lipase 68 (23-300) U/L HCG, Qual Not Detected Urine Color Urine Appearance (Clear) Urine pH (5.0-8.0) Ur Specific [place] (1.001-1.035) Urine Protein (Negative) Urine Glucose (UA) (Negative) Urine Ketones (Negative) Urine Blood (Negative) Urine Nitrite (Negative) Urine Bilirubin (Negative) Urine Urobilinogen (<2.0) mg/dL Ur Leukocyte Esterase (Negative) 04/17/25 Range/Units 07:19 WBC (4.50-10.00) 10*3/uL RBC (4.10-5.20) 10*6/uL Hgb (12.0-15.0) g/dL Hct (37.2-46.3) % MCV (80.0-97.0) fL MCH (27.0-32.0) pg MCHC (32.0-37.0) g/dL Plt Count (140-440) 10*3/uL MPV (9.5-12.2) fL Immature Gran % (Auto) % Neutrophils % % Lymphocytes % % Monocytes % % Eosinophils % % Basophils % % Immature Gran # (0.00-0.04) 10*3/uL Neutrophils # (1.80-7.70) 10*3/uL Lymphocytes # (0.90-5.00) 10*3/uL Monocytes # (0.20-1.00) 10*3/uL Eosinophils # (0.04-0.35) 10*3/uL Basophils # (0.00-0.10) 10*3/uL Sodium (137-145) mmol/L Potassium (3.5-5.1) mmol/L Chloride (98-107) mmol/L Carbon Dioxide (22-30) mmol/L Anion Gap mmol/L BUN (7-17) mg/dL Creatinine (0.52-1.04) mg/dL Est GFR (CKD-EPI)AfAm (>60 ml/min/1.73 sqM) Est GFR (CKD-EPI)NonAf (>60 ml/min/1.73 sqM) Glucose (74-99) mg/dL Plasma Lactic Acid Dandre (0.7-2.0) mmol/L Calcium (8.4-10.2) mg/dL Total Bilirubin (0.2-1.3) mg/dL AST (14-36) U/L ALT (4-34) U/L Alkaline Phosphatase (38-126) U/L Total Protein (6.3-8.2) g/dL Albumin (3.5-5.0) g/dL Lipase (23-300) U/L HCG, Qual Urine Color Colorless Urine Appearance Clear (Clear) Urine pH 8.5 H (5.0-8.0) Ur Specific [place] 1.009 (1.001-1.035) Urine Protein Negative (Negative) Urine Glucose (UA) Negative (Negative) Urine Ketones 1+ H (Negative) Urine Blood Negative (Negative) Urine Nitrite Negative (Negative) Urine Bilirubin Negative (Negative) Urine Urobilinogen <2.0 (<2.0) mg/dL Ur Leukocyte Esterase Negative (Negative) - Radiology Data Radiology results: report reviewed, image reviewed Disposition Clinical Impression: Pelvic pain, Nausea and vomiting Disposition: HOME SELF-CARE Instructions (If sedation given, give patient instructions): Acute Nausea and Vomiting (ED) Additional Instructions: Return to the emergency department with any new, worsening, or concerning symptoms. You can use the Phenergan suppositories or oral Phenergan up to every 6 hours as needed for nausea and vomiting. You can also alternate or take these with the Zofran if needed. Take the Toradol with Tylenol as needed for pain relief. If you choose to take the Toradol, do not take any other anti- inflammatories such as ibuprofen, take one or the other. Your ultrasound showed an enlarged right ovary as well as fibroids and adenomyosis, which can all contribute to your discomfort. Discuss a referral to an TRAINING ENGINEER with your primary care provider to discuss further management options. Prescriptions: Promethazine [Phenergan] 25 mg PO Q6HR PRN #20 tablet PRN Reason: Nausea And Vomiting Promethazine Suppository [Phenergan] 12.5 mg RECTAL Q6H PRN #14 suppositor PRN Reason: Nausea And Vomiting Ketorolac [Toradol] 10 mg PO Q6HR PRN #15 tab PRN Reason: Pain Is patient prescribed a controlled substance at d/c from ED?: No Referrals: Javier Nash MD [Primary Care Provider] - 1-2 days Time of Disposition: 08:26
[2025-04-17] MEDS: SODIUM CHLORIDE 0.9% 1,000 ML IV ONE (06:40)
[2025-04-17] MEDS: PANTOPRAZOLE 40 MG/10 ML VIAL IVP STA (06:44)
[2025-04-17] MEDS: PROCHLORPERAZINE INJ 10 MG/2 ML VIAL IVP STA (06:44)
[2025-04-17] MEDS: KETOROLAC 15 MG/ML 1 ML VIAL IVP STA (06:47)
[2025-04-17 06:52] LABS: Basophils # (A) 0.05 10*3/uL (0.00-0.10); Basophils % (A) 0.6 %; Eosinophils # (A) 0.04 10*3/uL (0.04-0.35); Eosinophils % (A) 0.5 %; HCT 41.6 % (37.2-46.3); HGB 14.7 g/dL (12.0-15.0); Lymphocytes # (A) 1.68 10*3/uL (0.90-5.00); Lymphocytes % (A) 20.7 %; MCH 30.5 pg (27.0-32.0); MCHC 35.3 g/dL (32.0-37.0); MCV 86.3 fL (80.0-97.0); Monocytes # (A) 0.29 10*3/uL (0.20-1.00); Monocytes % (A) 3.6 %; Neutrophils # (A) 6.02 10*3/uL (1.80-7.70); Neutrophils % (A) 74.4 %; Platelet Count 258 10*3/uL (140-440); RBC 4.82 10*6/uL (4.10-5.20); RDW 13.0 % (11.5-14.5); WBC 8.10 10*3/uL (4.50-10.00)
[2025-04-17 07:05] LABS: ALT 16 U/L (4-34); AST 26 U/L (14-36); African American GFR (CKD) >90 (>60 ml/min/1.73 sqM); Albumin 4.7 g/dL (3.5-5.0); Alkaline Phosphatase 61 U/L (38-126); Anion Gap 12 mmol/L; Blood Urea Nitrogen 8 mg/dL (7-17); Calcium 9.5 mg/dL (8.4-10.2); Carbon Dioxide 19 mmol/L (22-30); Chloride 107 mmol/L (98-107); Glucose 129 mg/dL (74-99); Lipase 68 U/L (23-300); Non-African American GFR(CKD) >90 (>60 ml/min/1.73 sqM); Potassium 4.1 mmol/L (3.5-5.1); Sodium 138 mmol/L (137-145); Total Protein 7.5 g/dL (6.3-8.2)
[2025-04-17 07:22] VITALS: RESP 16
[2025-04-17 07:37] LABS: HCG,Qualitative Serum Not Detected
[2025-04-17 07:46] LABS: Bilirubin,Urine Negative (Negative); Blood,Urine Negative (Negative); Color,Urine Colorless; Glucose,Urine (UA) Negative (Negative); Ketones,Urine 1+ (Negative); Leukocyte Esterase,Urine Negative (Negative); Nitrite,Urine Negative (Negative); PH, Urine 8.5 (5.0-8.0); Protein,Urine Negative (Negative); Specific Gravity,Urine 1.009 (1.001-1.035); Urobilinogen,Urine <2.0 mg/dL (<2.0)
--- NOTE | 2025-04-17 08:17 | US ---
EXAMINATION TYPE: US transvaginal plus Dopplers DATE OF EXAM: 04/17/2025 COMPARISON: CT 04/16/25 CLINICAL INDICATION: Female, 40 years old with history of Pelvic pain, ovarian cyst on CT; Ovarian cy st on CT. Rt side pain began Tuesday, N/V began at 1:30 am TECHNIQUE: Transvaginal (TV). Transvaginal sonographic images were medically necessary to better assess the following anatomy: Ovar ies Doppler imaging: Not performed. FINDINGS: Date of LMP: ablation 5+ years ago EXAM MEASUREMENTS: Uterus: 8.8 x 6.5 x 6.6 cm Endometrial Stripe: 0.2 cm Right Ovary: 4.5 x 2.2 x 2.9 cm vol: 14.8 ml Left Ovary: 3.1 x 1.6 x 2.6 cm vol: 6.9 ml 1. Uterus: Retroverted. Bulky appearance with increased posterior myometrial thickness and diffuse m yometrial heterogeneity which could reflect diffuse small fibroid change or adenomyosis. Intramural f ibroid is located in the right uterine fundus measuring 1.5 x 1.6 x 1.9 cm 2. Endometrium: Thin post ablation. No abnormal fluid collection seen. 3. Right Ovary: area previously believed to be a cyst on CT seems to correspond to mild free fluid a djacent to the ovary measuring 3.3 x 1.4 x 2.2 cm. The ovary demonstrates prominent central stroma. A tiny 7 mm follicle is present. 4. Left Ovary: Normal follicular change. Spectral, color and waveform doppler imaging shows good arterial and venous flow within the ovaries 5. Bilateral Adnexa: trace free fluid at fundus 6. Posterior cul-de-sac: wnl [employer] notes: While arterial and venous flow are obtained of the right ovary, the volume is doub le that of the left ovary IMPRESSION: 1. While the right ovary is twice the size of the left and shows mild adjacent free fluid, it maintai ns normal arterial/venous flow and size is still within a normal range, not having changed considerab ly from yesterday's CT were it had a volume of 18 mL. This may reflect physiologic changes to the rig ht ovary. If there is any suspicion for early ovarian torsion, short term observation/follow-up can b e considered. 2. Retroverted uterus with myometrial heterogeneity suggesting diffuse small fibroid change or adenom yosis. A right fundal fibroid is also present measuring 1.9 cm. 3. Normal, thin 2 mm endometrial stripe following previous ablation. [facility], Workstation: AC, 04/17/2025 8:15 AM
[2025-04-17] MEDS: ONDANSETRON 4 MG/2 ML VIAL IVP STA (08:39)
[2025-04-17] MEDS: ACET/COD 300 MG/30 MG STARTER PACK TAB BTL PO STA (08:40)
[2025-04-17 08:44] VITALS: BP 116/78; PULSE 80
== END 2025-04-17 09:01 | disposition home or self-care (01) ==
LOC: EC 06:19
DX: R10.2 Pelvic and perineal pain (principal); R11.2 Nausea with vomiting, unspecified; F17.290 Nicotine dependence, other tobacco product, uncomplicated; Z88.5 Allergy status to narcotic agent
CPT/HCPCS: 36415; 80053; 83605; 83690; 85025; 81003; 84703; 93975; 76830; 99285; 96374; 96375; 96361; J0780; J2405; J1885; J2470

== ENCOUNTER 2025-04-25 06:39 | Observation (INO) | payer OTHER ==
[2025-04-25 07:09] LABS: Glucose,Whole Blood 191 mg/dL (70-110)
[2025-04-25] MEDS: METOCLOPRAMIDE 5 MG/ML 2 ML VIAL IVP STA (07:10)
--- NOTE | 2025-04-25 07:16 | ED ---
Nausea/Vomiting/Diarrhea HPI - General Chief complaint: Nausea/Vomiting/Diarrhea Stated complaint: Nausea/Vomiting Time Seen by Provider: 04/25/25 06:51 Source: patient, RN notes reviewed Mode of arrival: ambulatory - History of Present Illness Initial comments: 40-year-old for complaints of persistent nausea and vomiting over the past 2 days. States that she has been unable to keep down foods and liquids due to this. She states that she has been having mild chest tightness that she believes that this is secondary to her having persistent vomiting. History of hypertension. She denies abdominal pain, difficulty in breathing, urinary or bowel habit changes, hematemesis. States that she has taken Zofran with no relief in symptoms. - Related Data Home Medications Medication Instructions Recorded Confirmed Ergocalciferol [Vitamin D2] 50,000 unit PO Q7D 01/25/17 04/25/25 HYDROcodone/APAP 5-325MG [[place] 1 tab PO BID PRN 01/25/17 04/25/25 5-325] Ibuprofen [Motrin] 800 mg PO BID 01/25/17 04/25/25 Albuterol Inhaler [Ventolin Hfa 2 puff INHALATION RT-QID PRN 10/24/20 04/25/25 Inhaler] clonazePAM [KlonoPIN] 1 mg PO BID 10/24/20 04/25/25 Cetirizine HCl 10 mg PO DAILY 04/25/25 04/25/25 Cyclobenzaprine [Flexeril] 10 mg PO TID PRN 04/25/25 04/25/25 Dicyclomine [Bentyl] 10 mg PO DAILY 04/25/25 04/25/25 Fluticasone/Umeclidin/Vilanter 1 puff INHALATION RT-DAILY 04/25/25 04/25/25 [Trelegy Ellipta 100-62.5-25] Montelukast [Singulair] 10 mg PO DAILY 04/25/25 04/25/25 Ondansetron [Zofran] 4 mg PO TID PRN 04/25/25 04/25/25 Pantoprazole Sodium [Protonix] 20 mg PO DAILY 04/25/25 04/25/25 Semaglutide [Wegovy] 2.4 mg SQ SA 04/25/25 04/25/25 Allergies Allergy/AdvReac Type Severity Reaction Status Date / Time tramadol Allergy Itching Verified 04/25/25 12:39 Review of Systems ROS Statement: Those systems with pertinent positive or pertinent negative responses have been documented in the HPI. ROS Other: All systems not noted in ROS Statement are negative. Past Medical History Past Medical History: Hypertension, Pneumonia Additional Past Medical History / Comment(s): Hx pneumonia >1 yr ago, ovarian cysts, chronic neck and lower back pain, hx gestational diabetes X1. History of Any Multi-Drug Resistant Organisms: None Reported Past Surgical History: Tubal Ligation Past Anesthesia/Blood Transfusion Reactions: No Reported Reaction Past Psychological History: Anxiety Smoking Status: Former smoker, Vaper Past Alcohol Use History: None Reported Past Drug Use History: Marijuana - Past Family History Mother Family Medical History: No Reported History General Exam Head exam: Present: atraumatic, normocephalic, normal inspection Neck exam: Present: normal inspection. Absent: tenderness, meningismus, lymphadenopathy Respiratory exam: Present: normal lung sounds bilaterally. Absent: respiratory distress, wheezes, rales, rhonchi, stridor Cardiovascular Exam: Present: regular rate, normal rhythm, normal heart sounds. Absent: systolic murmur, diastolic murmur, rubs, gallop, clicks GI/Abdominal exam: Present: soft, normal bowel sounds. Absent: distended, tenderness, guarding, rebound, rigid Extremities exam: Present: normal inspection, full ROM, normal capillary refill. Absent: tenderness, pedal edema, joint swelling, calf tenderness Back exam: Present: normal inspection Course Vital Signs 04/25/25 04/25/25 04/25/25 06:40 08:20 14:14 Temperature 97.6 F 98 F Pulse Rate 104 H 84 77 Pulse Rate [ Pulse Oximetery ] Respiratory 18 16 16 Rate Blood Pressure 106/55 134/85 124/93 Blood Pressure [Left Arm] O2 Sat by Pulse 100 100 99 Oximetry 04/25/25 04/25/25 15:00 16:32 Temperature 99.0 F 97.9 F Pulse Rate 81 Pulse Rate [ 93 Pulse Oximetery ] Respiratory 20 16 Rate Blood Pressure 133/76 Blood Pressure 115/63 [Left Arm] O2 Sat by Pulse 99 99 Oximetry Medical Decision Making - Medical Decision Making Was pt. sent in by a medical professional or institution (, PA, ETYMOLOGY PROFESSOR, urgent care, hospital, or intermediate...) When possible be specific @ -No Did you speak to anyone other than the patient for history (EMS, parent, family, police, friend...)? What history was obtained from this source @ -No Did you review nursing and triage notes (agree or disagree)? Why? @ -I reviewed and agree with nursing and triage notes Were old charts reviewed (outside hosp., previous admission, EMS record, old EK G, old radiological studies, urgent care reports/EKG's, intermediate records)? Report findings @ -No old charts were reviewed Differential Diagnosis (chest pain, altered mental status, abdominal pain women, abdominal pain men, vaginal bleeding, weakness, fever, dyspnea, syncope, headache, dizziness, GI bleed, back pain, seizure, CVA, palpatations, mental health, musculoskeletal)? @ -Differential Chest Pain: Stable Angina, Unstable Angina, STEMI, NSTEMI Aortic Dissection, Pneumothorax, Musculoskeletal, Esophageal Spasm GERD, Cholecystitis, Pancreatitis, Zoster, this is not meant to be an all-inclusive list. EKG interpreted by me (3pts min.). @ -Completed at 728 sinus rhythm with a ventricular to 62, NE interval 156, QRS 99, QT 412, QTc 418. X-rays interpreted by me (1pt min.). @ -None done CT interpreted by me (1pt min.). @ -None done U/S interpreted by me (1pt. min.). @ -None done What testing was considered but not performed or refused? (CT, X-rays, U/S, labs)? Why? @ -None What meds were considered but not given or refused? Why? @ -None Did you discuss the management of the patient with other professionals (professionals i.e. , PA, ETYMOLOGY PROFESSOR, lab, RT, psych nurse, social media content specialist, certified addiction counselor, teacher, traffic police officer, caser in)? Give summary @ -Charity Burns for admission Was smoking cessation discussed for >3mins.? @ -No Was critical care preformed (if so, how long)? @ -No Were there social determinants of health that impacted care today? How? (Homelessness, low income, unemployed, alcoholism, drug addiction, transportation, low edu. Level, literacy, decrease access to med. care, half-way, rehab)? @ -No Was there de-escalation of care discussed even if they declined (Discuss DNR or withdrawal of care, Hospice)? DNR status @ -No What co-morbidities impacted this encounter? (DM, HTN, Smoking, COPD, CAD, Cancer, CVA, ARF, Chemo, Hep., AIDS, mental health diagnosis, sleep apnea, morbid obesity)? @ -None Was patient admitted / discharged? Hospital course, mention meds given and route, prescriptions, significant lab abnormalities, going to OR and other pertinent info. @ -Admitted. 40-year-old female presents emergency room with complaints of persistent nausea and vomiting over the past 2 days. Patient is ill-appearing on examination, diaphoretic, and dry heaving. She is provided with dose of Reglan as she has taken Zofran at home with no relief. Abdominal examination is unremarkable. Patient's EKG is in sinus rhythm with no ST segment changes. Labs reveal leukocytosis of 16 with left shift likely reactive secondary to emesis. Patient was noted to have an NSTEMI with a troponin of 0.039. On reevaluation after fluids, Benadryl, Reglan patient is well-appearing and states that the nausea and vomiting has resolved. Patient will be admitted to internal medicine cardiology on consult and will trend heart enzyme. At this time patient will not be started on heparin. Case discussed with my attending Dr. Hanks. Patient will be admitted to Dr. Nash. Undiagnosed new problem with uncertain prognosis? @ -No Drug Therapy requiring intensive monitoring for toxicity (Heparin, Nitro, Insulin, Cardizem)? @ -No Were any procedures done? @ -No Diagnosis/symptom? @ -NSTEMI Acute, or Chronic, or Acute on Chronic? @ -acute Uncomplicated (without systemic symptoms) or Complicated (systemic symptoms)? @ -complicated Side effects of treatment? @ -No Exacerbation, Progression, or Severe Exacerbation? @ -No Poses a threat to life or bodily function? How? (Chest pain, USA, MD, pneumonia, PE, COPD, DKA, ARF, appy, cholecystitis, CVA, Diverticulitis, Homicidal, Suicidal, threat to staff... and all critical care pts) @ -No - Lab Data Result diagrams: 04/25/25 07:16 04/25/25 07:16 Lab Results 07/31/25 07/31/25 07/31/25 Range/Units 07:08 07:16 07:16 WBC 16.43 H (4.50-10.00) 10*3/uL RBC 4.95 (4.10-5.20) 10*6/uL Hgb 15.2 H (12.0-15.0) g/dL Hct 41.5 (37.2-46.3) % MCV 83.8 (80.0-97.0) fL MCH 30.7 (27.0-32.0) pg MCHC 36.6 (32.0-37.0) g/dL Plt Count 397 (140-440) 10*3/uL MPV 10.7 (9.5-12.2) fL Immature Gran % (Auto) 0.4 % Neutrophils % 78.4 % Lymphocytes % 15.8 % Monocytes % 5.2 % Eosinophils % 0.0 % Basophils % 0.2 % Immature Gran # 0.07 H (0.00-0.04) 10*3/uL Neutrophils # 12.87 H (1.80-7.70) 10*3/uL Lymphocytes # 2.60 (0.90-5.00) 10*3/uL Monocytes # 0.86 (0.20-1.00) 10*3/uL Eosinophils # 0.00 L (0.04-0.35) 10*3/uL Basophils # 0.03 (0.00-0.10) 10*3/uL PT (10.0-12.5) sec INR (<1.2) APTT (22.0-30.0) sec Sodium 138 (137-145) mmol/L Potassium 3.4 L (3.5-5.1) mmol/L Chloride 98 (98-107) mmol/L Carbon Dioxide 16 L (22-30) mmol/L Anion Gap 24 mmol/L BUN 17 (7-17) mg/dL Creatinine 0.66 (0.52-1.04) mg/dL Est GFR (CKD-EPI)AfAm >90 (>60 ml/min/1.73 sqM) Est GFR (CKD-EPI)NonAf >90 (>60 ml/min/1.73 sqM) Glucose 212 H (74-99) mg/dL POC Glucose (mg/dL) 191 H (70-110) mg/dL POC Glu Project Production Engineer ID Maximino Gomes Calcium 9.7 (8.4-10.2) mg/dL Magnesium 1.8 (1.6-2.3) mg/dL Total Bilirubin 1.4 H (0.2-1.3) mg/dL AST 32 (14-36) U/L ALT 28 (4-34) U/L Alkaline Phosphatase 60 (38-126) U/L Troponin I (0.000-0.034) ng/mL Total Protein 7.9 (6.3-8.2) g/dL Albumin 5.1 H (3.5-5.0) g/dL Lipase 73 (23-300) U/L 04/25/25 04/25/25 Range/Units 07:29 07:29 WBC (4.50-10.00) 10*3/uL RBC (4.10-5.20) 10*6/uL Hgb (12.0-15.0) g/dL Hct (37.2-46.3) % MCV (80.0-97.0) fL MCH (27.0-32.0) pg MCHC (32.0-37.0) g/dL Plt Count (140-440) 10*3/uL MPV (9.5-12.2) fL Immature Gran % (Auto) % Neutrophils % % Lymphocytes % % Monocytes % % Eosinophils % % Basophils % % Immature Gran # (0.00-0.04) 10*3/uL Neutrophils # (1.80-7.70) 10*3/uL Lymphocytes # (0.90-5.00) 10*3/uL Monocytes # (0.20-1.00) 10*3/uL Eosinophils # (0.04-0.35) 10*3/uL Basophils # (0.00-0.10) 10*3/uL PT 11.7 (10.0-12.5) sec INR 1.1 (<1.2) APTT 22.1 (22.0-30.0) sec Sodium (137-145) mmol/L Potassium (3.5-5.1) mmol/L Chloride (98-107) mmol/L Carbon Dioxide (22-30) mmol/L Anion Gap mmol/L BUN (7-17) mg/dL Creatinine (0.52-1.04) mg/dL Est GFR (CKD-EPI)AfAm (>60 ml/min/1.73 sqM) Est GFR (CKD-EPI)NonAf (>60 ml/min/1.73 sqM) Glucose (74-99) mg/dL POC Glucose (mg/dL) (70-110) mg/dL POC Glu Project Production Engineer ID Calcium (8.4-10.2) mg/dL Magnesium (1.6-2.3) mg/dL Total Bilirubin (0.2-1.3) mg/dL AST (14-36) U/L ALT (4-34) U/L Alkaline Phosphatase (38-126) U/L Troponin I 0.039 H* (0.000-0.034) ng/mL Total Protein (6.3-8.2) g/dL Albumin (3.5-5.0) g/dL Lipase (23-300) U/L Disposition Clinical Impression: NSTEMI (non-ST elevated myocardial infarction) Disposition: ADMITTED IP TO THIS HOSP
[2025-04-25] MEDS: diphenhydrAMINE 50 MG/ML 1 ML VIAL IVP STA (07:29)
[2025-04-25] MEDS: SODIUM CHLORIDE 0.9% 1,000 ML IV STA (07:30)
[2025-04-25 07:54] LABS: Basophils # (A) 0.03 10*3/uL (0.00-0.10); Basophils % (A) 0.2 %; Eosinophils # (A) 0.00 10*3/uL (0.04-0.35); Eosinophils % (A) 0.0 %; HCT 41.5 % (37.2-46.3); HGB 15.2 g/dL (12.0-15.0); Lymphocytes # (A) 2.60 10*3/uL (0.90-5.00); Lymphocytes % (A) 15.8 %; MCH 30.7 pg (27.0-32.0); MCHC 36.6 g/dL (32.0-37.0); MCV 83.8 fL (80.0-97.0); Monocytes # (A) 0.86 10*3/uL (0.20-1.00); Monocytes % (A) 5.2 %; Neutrophils # (A) 12.87 10*3/uL (1.80-7.70); Neutrophils % (A) 78.4 %; Platelet Count 397 10*3/uL (140-440); RBC 4.95 10*6/uL (4.10-5.20); RDW 13.1 % (11.5-14.5); WBC 16.43 10*3/uL (4.50-10.00)
[2025-04-25 08:07] LABS: AST 32 U/L (14-36); African American GFR (CKD) >90 (>60 ml/min/1.73 sqM); Albumin 5.1 g/dL (3.5-5.0); Alkaline Phosphatase 60 U/L (38-126); Anion Gap 24 mmol/L; Blood Urea Nitrogen 17 mg/dL (7-17); Calcium 9.7 mg/dL (8.4-10.2); Carbon Dioxide 16 mmol/L (22-30); Chloride 98 mmol/L (98-107); Glucose 212 mg/dL (74-99); Lipase 73 U/L (23-300); Magnesium 1.8 mg/dL (1.6-2.3); Non-African American GFR(CKD) >90 (>60 ml/min/1.73 sqM); Potassium 3.4 mmol/L (3.5-5.1); Sodium 138 mmol/L (137-145); Total Protein 7.9 g/dL (6.3-8.2)
[2025-04-25 08:08] LABS: INR 1.1 (<1.2); Partial Thromboplastin Time 22.1 sec (22.0-30.0); Prothrombin Time 11.7 sec (10.0-12.5)
[2025-04-25 08:17] LABS: ALT 28 U/L (4-34)
[2025-04-25] MEDS: ASPIRIN 81 MG PO STA (08:26)
[2025-04-25] MEDS: ONDANSETRON 4 MG/2 ML VIAL IVP STA (09:38)
[2025-04-25] MEDS ORDERED: ACETAMINOPHEN TAB 325 MG TAB PO PRN (13:12)
[2025-04-25] MEDS ORDERED: NALOXONE 0.4 MG/ML 1 ML VIAL IV PRN (13:12)
[2025-04-25] MEDS: SODIUM CHLORIDE 0.9% 1,000 ML IV SCH (13:47)
[2025-04-25] MEDS: METOCLOPRAMIDE 5 MG/ML 2 ML VIAL IVP PRN (13:47)
[2025-04-25] MEDS ORDERED: ONDANSETRON ODT 4 MG TAB PO PRN (13:54)
[2025-04-25] MEDS ORDERED: ALBUTEROL NEBULIZED 2.5 MG/3 ML INHALATION PRN (13:54)
[2025-04-25] MEDS ORDERED: HYDROcodone/APAP 5-325MG 1 EACH TAB PO PRN (13:54)
[2025-04-25] MEDS ORDERED: CYCLOBENZAPRINE 10 MG TAB PO PRN (13:54)
[2025-04-25] MEDS ORDERED: NON FORMULARY DRUG (Ergocalciferol 50,000 UNIT Cap) PO SCH (14:00)
[2025-04-25] MEDS: clonazePAM 1 MG TAB PO PRN (14:12)
[2025-04-25 14:28] LABS: Bacteria,Urine Few /hpf; Bilirubin,Urine Negative (Negative); Blood,Urine Negative (Negative); Color,Urine Yellow; Glucose,Urine (UA) Trace (Negative); Ketones,Urine 3+ (Negative); Leukocyte Esterase,Urine Trace (Negative); Mucus,Urine Many /hpf; Nitrite,Urine Negative (Negative); PH, Urine 6.0 (5.0-8.0); Protein,Urine Trace (Negative); Specific Gravity,Urine 1.025 (1.001-1.035); Squamous Epithelial Cell,Urine 6 /hpf (0-4); Urobilinogen,Urine <2.0 mg/dL (<2.0); WBC,Urine 7 /hpf (0-5)
[2025-04-25] MEDS: POTASSIUM CHLORIDE ER 20 MEQ TAB.ER PO STA (17:26)
[2025-04-25] MEDS: IBUPROFEN 800 MG TAB PO SCH (20:29)
[2025-04-25] MEDS: ONDANSETRON 4 MG/2 ML VIAL IVP PRN (20:30)
[2025-04-25] MEDS ORDERED: clonazePAM 1 MG TAB PO SCH (21:00)
[2025-04-26] MEDS: METOCLOPRAMIDE 5 MG/ML 2 ML VIAL IVP PRN (04:00)
[2025-04-26] MEDS: AMPICILLIN-SULBACTAM 3 GM in SODIUM CHLORIDE 0.9% 100 ML IVPB SCH (05:33)
[2025-04-26 06:48] VITALS: BP 110/60; PULSE 85; RESP 17; TEMP 98.9
[2025-04-26] MEDS: PANTOPRAZOLE 40 MG TABLET PO SCH (08:27)
[2025-04-26] MEDS: MONTELUKAST 10 MG TAB PO SCH (08:28)
[2025-04-26] MEDS: LORATADINE 10 MG TAB PO SCH (08:28)
[2025-04-26] MEDS: DICYCLOMINE 10 MG CAP PO SCH (08:28)
[2025-04-26] MEDS: TIOTROPIUM 2.5 MCG INHALER INHALATION SCH (09:34)
--- NOTE | 2025-04-26 09:53 | P.CRDCN ---
History of Present Illness Consult date: 04/26/25 Requesting physician: Javier Nash Reason for Consult (text): NSTEMI Chief complaint: Intractable nausea and vomiting History of present illness: This is a pleasant 40-year-old female patient does not follow with a technical solutions director. With past medical history of hypertension, improved and off meds since losing 81 pounds, gestational diabetes, ex-smoker quit 10 years ago. Presented to the hospital with complaints of intractable nausea and vomiting for 2 days as well as some right sided chest discomfort occurring with vomiting. Unable to keep any liquids or foods down and then after vomiting frequently she developed some right sided chest discomfort that was worse with vomiting. We were asked to see the patient in consultation due to mild troponin elevation. Does have a recent 81 pound weight loss using We[employer] but this was stopped 2 months ago. Diagnostics -EKG: Sinus rhythm -Chest x-ray: Not available -Laboratory studies: Count 16.4, potassium 3.4, total bilirubin 1.4, troponin 0.039, less than 0.012 and less than 0.012 - No cardiac home medications and no prior cardiac workup Review Of Systems: At the time of my exam: CONSTITUTIONAL: Denies fever or chills. HEENT: Denies blurred vision, vision changes. CARDIOVASCULAR: Denies chest pain. Denies orthopnea. Denies PND. Denies palpitations, dizziness, or syncope. RESPIRATORY: Denies shortness of breath, wheezing, or cough. Denies hemoptysis. GASTROINTESTINAL: Denies abdominal pain. Denies nausea or vomiting. Denies bleeding. HEMATOLOGIC: Denies bleeding disorders. GENITOURINARY: Denies hematuria. SKIN: Denies puritis. Denies rash. PHYSICAL EXAMINATION: This is a 40-year-old female in no apparent distress at the time of my examination. VITAL SIGNS: Reviewed. HEENT: Head is atraumatic, normocephalic. Pupils are equal, round. Sclerae anicteric. Conjunctivae are clear. Mucous membranes of the mouth are moist. Neck is supple. There is no elevated jugular venous pressure. No carotid bruit is heard. CHEST EXAMINATION: Clear to auscultation bilaterally. No wheezes rales or rhonchi. Respirations even and nonlabored. HEART EXAMINATION: Heart regular, positive S1 and S2. No S3. Prominent S4. No clicks, rubs or murmurs. ABDOMEN: Soft, nontender. Bowel sounds are heard. No organomegaly noted. EXTREMITIES: 2+ peripheral pulses with no evidence of peripheral edema and no calf tenderness noted. NEUROLOGIC EXAMINATION: Patient is awake, alert and oriented x3. Assessment: 1. Elevated troponin, likely secondary to type II event 2. Intractable nausea and vomiting 3. Right-sided chest discomfort 4. History of hypertension, resolved with weight loss Plan: From cardiology's perspective we will obtain a 2D echo with Doppler study. If there is no significant abnormalities noted on the echo patient may be discharged home and we will follow-up in the office with her in about 2 weeks. Thank you kindly for this consultation. Nurse practitioner note has been reviewed, I agree with documented findings and plan of care. Patient was seen and examined. Past Medical History Past Medical History: Hypertension, Pneumonia Additional Past Medical History / Comment(s): Hx pneumonia >1 yr ago, ovarian cysts, chronic neck and lower back pain, hx gestational diabetes X1. History of Any Multi-Drug Resistant Organisms: None Reported Past Surgical History: Tubal Ligation Past Anesthesia/Blood Transfusion Reactions: No Reported Reaction Past Psychological History: Anxiety Smoking Status: Former smoker, Vaper Past Alcohol Use History: None Reported Past Drug Use History: Marijuana - Past Family History Mother Family Medical History: No Reported History Medications and Allergies Home Medications Medication Instructions Recorded Confirmed Type Ergocalciferol [Vitamin D2] 50,000 unit PO Q7D 01/25/17 04/25/25 History HYDROcodone/APAP 5-325MG [[place] 1 tab PO BID PRN 01/25/17 04/25/25 History 5-325] Ibuprofen [Motrin] 800 mg PO BID 01/25/17 04/25/25 History Albuterol Inhaler [Ventolin Hfa 2 puff INHALATION RT-QID PRN 10/24/20 04/25/25 History Inhaler] clonazePAM [KlonoPIN] 1 mg PO BID 10/24/20 04/25/25 History Cetirizine HCl 10 mg PO DAILY 04/25/25 04/25/25 History Cyclobenzaprine [Flexeril] 10 mg PO TID PRN 04/25/25 04/25/25 History Dicyclomine [Bentyl] 10 mg PO DAILY 04/25/25 04/25/25 History Fluticasone/Umeclidin/Vilanter 1 puff INHALATION RT-DAILY 04/25/25 04/25/25 History [Trelegy Ellipta 100-62.5-25] Montelukast [Singulair] 10 mg PO DAILY 04/25/25 04/25/25 History Ondansetron [Zofran] 4 mg PO TID PRN 04/25/25 04/25/25 History Pantoprazole Sodium [Protonix] 20 mg PO DAILY 04/25/25 04/25/25 History Semaglutide [Wegovy] 2.4 mg SQ SA 04/25/25 04/25/25 History Allergies Allergy/AdvReac Type Severity Reaction Status Date / Time tramadol Allergy Itching Verified 04/25/25 12:39 Physical Exam Vitals: Vital Signs Temp Pulse Pulse Resp BP BP BP 04/26/25 06:47 98.9 F 85 17 110/60 04/26/25 03:19 98.5 F 75 16 151/83 04/26/25 02:00 75 16 04/25/25 20:17 99.0 F 72 16 145/82 04/25/25 20:00 86 19 04/25/25 16:32 97.9 F 81 16 133/76 04/25/25 15:00 99.0 F 93 20 115/63 04/25/25 14:14 77 16 124/93 Pulse Ox 04/26/25 06:47 100 04/26/25 03:19 100 04/26/25 02:00 04/25/25 20:17 100 04/25/25 20:00 04/25/25 16:32 99 04/25/25 15:00 99 04/25/25 14:14 99 Intake and Output 04/25/25 04/26/25 04/26/25 22:59 06:59 14:59 Intake Total 581 Balance 581 Intake: Oral 581 Other: # Voids 3 2 Results 04/25/25 07:16 04/25/25 07:16 Cardiac Enzymes 04/25/25 04/25/25 Range/Units 11:01 12:57 Troponin I <0.012 <0.012 (0.000-0.034) ng/mL Current Medications Generic Name Dose Route Start Last Admin Trade Name Freq PRN Reason Stop Dose Admin Acetaminophen 650 mg 04/25/25 13:12 Acetaminophen Tab 325 Mg Tab PO Q6HR PRN Mild Pain or Fever > 100.5 Hydrocodone Bitart/Acetaminophen 1 each 04/25/25 13:54 Hydrocodone/Apap 5-325mg 1 Each Tab PO BID PRN Pain Albuterol Sulfate 2.5 mg 04/25/25 13:54 Albuterol Nebulized 2.5 Mg/3 Ml INHALATION RT-QID PRN Shortness Of Breath Clonazepam 1 mg 04/25/25 14:00 04/26/25 08:36 Clonazepam 1 Mg Tab PO 1 mg BID PRN Administration Anxiety Cyclobenzaprine HCl 10 mg 04/25/25 13:54 Cyclobenzaprine 10 Mg Tab PO TID PRN Muscle Spasm Dicyclomine HCl 10 mg 04/26/25 09:00 04/26/25 08:28 Dicyclomine 10 Mg Cap PO 10 mg DAILY RICHI Administration Sodium Chloride 1,000 mls @ 75 mls/hr 04/25/25 13:15 04/26/25 04:01 Saline 0.9% IV 75 mls/hr .[id number] RICHI Administration Ampicillin Sodium/Sulbactam 100 mls @ 200 mls/hr 04/26/25 06:00 04/26/25 05:33 Sodium 3 gm/ Sodium Chloride IVPB 200 mls/hr Q6HR RICHI Administration Protocol Ibuprofen 800 mg 04/25/25 21:00 04/26/25 08:27 Ibuprofen 800 Mg Tab PO 800 mg BID RICHI Administration Loratadine 10 mg 04/26/25 09:00 04/26/25 08:28 Loratadine 10 Mg Tab PO 10 mg DAILY RICHI Administration Metoclopramide HCl 10 mg 04/26/25 02:22 04/26/25 04:00 Metoclopramide 5 Mg/Ml 2 Ml Vial IVP 10 mg Q6HR PRN Administration Nausea Montelukast Sodium 10 mg 04/26/25 09:00 04/26/25 08:28 Montelukast 10 Mg Tab PO 10 mg DAILY RICHI Administration Naloxone HCl 0.2 mg 04/25/25 13:12 Naloxone 0.4 Mg/Ml 1 Ml Vial IV Q2M PRN Opioid Reversal Non-Formulary Medication 2.4 mg 04/27/25 09:00 Semaglutide [Wegovy] SQ SA RICHI Ondansetron HCl 4 mg 04/25/25 13:12 04/26/25 07:41 Ondansetron 4 Mg/2 Ml Vial IVP 4 mg Q8HR PRN Administration Nausea And Vomiting Ondansetron HCl 4 mg 04/25/25 13:54 Ondansetron Odt 4 Mg Tab PO TID PRN Nausea Pantoprazole Sodium 40 mg 04/26/25 09:00 04/26/25 08:27 Pantoprazole 40 Mg Tablet PO 40 mg DAILY RICHI Administration Tiotropium [place] 2 puff 04/26/25 08:00 04/26/25 09:34 Tiotropium 2.5 Mcg Inhaler INHALATION 2 puff RT-DAILY RICHI Administration Intake and Output 04/25/25 04/26/25 04/26/25 22:59 06:59 14:59 Intake Total 581 Balance 581 Intake: Oral 581 Other: # Voids 3 2 04/25/25 07:16 04/25/25 07:16
--- NOTE | 2025-04-26 10:27 | CA ---
Transthoracic Echo Report Name: Juana Sepulveda Age: 40 Gender: F : 1985 Exam Date: 04/26/2025 09:08 Exam Location: [place] [facility] Ht (in): 65 Wt (lb): 161 Ordering Physician: Bri Denise Attending/Referring Phys: [id number], Howie Lock Installer Mahogany Mcknight RDCS Procedure CPT: Indications: Chest Pain Cardiac Hx: Technical Quality: Good Contrast 1: Total Dose (mL): Contrast 2: Total Dose (mL): MEASUREMENTS (Male / Female) Normal Values 2D ECHO LV Diastolic Diameter PLAX 5.0 cm 4.2 - 5.9 / 3.9 - 5.3 cm LV Systolic Diameter PLAX 2.3 cm IVS Diastolic Thickness 0.8 cm 0.6 - 1.0 / 0.6 - 0.9 cm LVPW Diastolic Thickness 0.9 cm 0.6 - 1.0 / 0.6 - 0.9 cm LV Relative Wall Thickness 0.4 RV Internal Dim ED PLAX 1.8 cm LA Systolic Diameter LX 4.3 cm 3.0 - 4.0 / 2.7 - 3.8 cm LV Diastolic Volume MOD BP 80.0 cm??? 67 - 155 / 56 - 104 cm??? LV Systolic Volume MOD BP 21.0 cm??? - 58 / 19 - 49 cm??? LV Ejection Fraction MOD BP 73.8 % >= 55 % LV Cardiac Index MOD BP 2237.3 cm???/min???m??? LV Diastolic Volume MOD 4C 89.9 cm??? LV Systolic Volume MOD 4C 19.7 cm??? LV Ejection Fraction MOD 4C 78.1 % LV Cardiac Index MOD 4C 2661.5 cm???/min???m??? LV Diastolic Length 4C 7.1 cm LV Systolic Length 4C 5.5 cm LV Diastolic Volume MOD 2C 60.0 cm??? LV Systolic Volume MOD 2C 20.1 cm??? LV Ejection Fraction MOD 2C 66.5 % LV Cardiac Index MOD 2C 1512.7 cm???/min???m??? LV Diastolic Length 2C 5.9 cm LV Systolic Length 2C 4.9 cm LA Volume 49.5 cm??? 18 - 58 / 22 - 52 cm??? LA Volume Index 26.8 cm???/m??? 16 - 28 cm???/m??? M-MODE Aortic Root Diameter MM 3.3 cm LA Systolic Diameter MM 3.0 cm LA Ao Ratio MM 0.9 AV Cusp Separation MM 1.9 cm DOPPLER AI Peak Velocity 322.0 cm/s AI Peak Gradient 41.5 mmHg AI Pressure Half Time 737.0 ms MV Area PHT 4.2 cm??? Mitral E Point Velocity 88.1 cm/s Mitral A Point Velocity 70.2 cm/s Mitral E to A Ratio 1.3 MV Deceleration Time 178.5 ms TR Peak Velocity 236.4 cm/s TR Peak Gradient 22.4 mmHg FINDINGS Left Ventricle Left ventricular ejection fraction is estimated at 55-60%. Normal Left ventricular size, wall thickness, systolic function with no obvious regional wall motion abnormalities. Normal Left ventricular diastolic filling pattern. Right Ventricle Right ventricle not well visualized. Right ventricular systolic pressure within normal limits. Right Atrium Normal right atrial size. Left Atrium Mildly increased left atrial diameter. Mitral Valve Structurally normal mitral valve. Mild mitral regurgitation. No mitral stenosis. Aortic Valve Trileaflet aortic valve. No aortic stenosis. mild aortic regurgitation. Tricuspid Valve Structurally normal tricuspid valve. Mild tricuspid regurgitation. No tricuspid stenosis. Pulmonic Valve Structurally normal pulmonic valve. No pulmonic stenosis. Trace pulmonic regurgitation. Pericardium Minimal pericardial effusion (normal variant). Aorta Normal size aortic root and proximal ascending aorta. CONCLUSIONS 1. Normal left ventricular size and systolic function 2. Mild mitral and tricuspid regurgitation with no evidence of pulmonary hypertension 3. Mild aortic regurgitation Previewed by: Dr. Nica Tejeda MD (Electronically Signed) Final Date: 26 April 2025 10:26
[2025-04-26 11:05] LABS: Basophils # (A) 0.04 X 10*3/uL (0.00-0.10); Basophils % (A) 0.3 %; Eosinophils # (A) 0 X 10*3/uL (0.04-0.35); Eosinophils % (A) 0 %; HCT 40.9 % (37.2-46.3); HGB 14.3 g/dL (12.0-15.0); Immature Grans, Automated 0.30 %; Lymphocytes # (A) 2.67 X 10*3/uL (0.90-5.00); Lymphocytes % (A) 23.0 %; MCH 30.0 pg (27.0-32.0); MCHC 35.0 g/dL (32.0-37.0); MCV 85.9 FL (80.0-97.0); Monocytes # (A) 0.74 X 10*3/uL (0.20-1.00); Monocytes % (A) 6.4 %; NRBC Per 100 WBC 0 X 10*3/uL (0.00-0.01); Neutrophils # (A) 8.10 X 10*3/uL (1.80-7.70); Neutrophils % (A) 70.0 %; Platelet Count 294 X 10*3/uL (140-440); RBC 4.76 X 10*6/uL (4.10-5.20); RDW 13.2 % (11.5-14.5); WBC 11.59 X 10*3/uL (4.50-10.00)
[2025-04-26 11:21] LABS: ALT 16 U/L (8-44); AST 20 U/L (13-35); Albumin 4.5 g/dL (3.8-4.9); Albumin/Globulin Ratio 2.05 Ratio (1.60-3.17); Alkaline Phosphatase 50 U/L (41-126); Anion Gap 14.90 mmol/L (4.00-12.00); BUN/Creat Ratio 22.00 Ratio (12.00-20.00); Blood Urea Nitrogen 11.0 mg/dL (9.0-27.0); Calcium 8.9 mg/dL (8.7-10.3); Carbon Dioxide 22.1 mmol/L (21.6-31.8); Chloride 102 mmol/L (96-109); Globulin 2.2 g/dL (1.6-3.3); Glucose 91 mg/dL (70-110); Potassium 3.2 mmol/L (3.5-5.5); Sodium 139 mmol/L (135-145); Total Protein 6.7 g/dL (6.2-8.2)
[2025-04-27] MEDS ORDERED: NON FORMULARY DRUG (Semaglutide [Wegovy] 2.4 MG/0.75 ML Each) SQ SCH (09:00)
--- NOTE | 2025-04-27 11:15 | HP ---
HISTORY AND PHYSICAL CHIEF COMPLAINT: Nausea, vomiting, chills, and chest pain. HISTORY OF PRESENT ILLNESS: This is first known admission for this 40-year-old female. For 5 days before coming to the hospital, she developed nausea and vomiting, which was intractable. She did not have any diarrhea. She did have chills. She had no urinary complaints. When she came to the emergency room, it was felt that she was dehydrated. Her troponin was also slightly elevated. She had no other symptoms to suggest heart disease. EKG was normal. REVIEW OF SYSTEMS: She has had no diaphoresis, syncope, palpitations, orthopnea, or PND, etc. She has had no hematemesis, melena, or hematochezia, etc. Past medical history, family history, personal and social histories are all otherwise unremarkable and noncontributory. PHYSICAL EXAMINATION: VITAL SIGNS: Normal. HEAD, EARS, EYES, NOSE, MOUTH AND THROAT: Normal except for dehydration. CHEST: Clear. CARDIAC: Exam demonstrates sinus rhythm. ABDOMEN: Soft and she had generalized mild tenderness without any masses or visceromegaly. Bowel sounds are present. EXTREMITIES: Normal. NEUROLOGICAL: She is intact. IMPRESSION: She is admitted to the hospital with diagnosis of; 1. Intractable nausea and vomiting. 2. Elevated troponin. PLAN: 1. Bedrest. 2. IV fluids. 3. Serial EKGs and enzymes. 4. Antiemetics. 5. Rehydrate. 6. Consult Cardiology. AJAY / DK: [id number] /
--- NOTE | 2025-04-27 12:06 | DS ---
DISCHARGE SUMMARY CHIEF COMPLAINT: Intractable nausea and vomiting. HISTORY OF PRESENT ILLNESS AND PHYSICAL EXAM: Details of this lady's history and physical can be found in the initial workup. LABORATORY STUDIES: While she is in a hospital, she had laboratory studies, details of which can be found in the laboratory section of her chart. COURSE IN HOSPITAL: After admission, she was placed on bedrest on intravenous fluids and started on antiemetics. Cardiac workup was negative. Nausea and vomiting began to subside. She was doing well and was anxious to be discharged. She will be followed up in the office in several days. IMPRESSION: 1. Intractable nausea and vomiting. 2. Dehydration. 3. Viral gastroenteritis. 4. Elevated troponin. OPERATIONS: None. CONSULTATION: Cardiology. MMODTiffanie / DK: [id number] /
== END 2025-04-26 13:20 | disposition home or self-care (01) ==
LOC: EC 06:39 → 6NMEDSUR 08:20
PROVIDERS: ADMIT Family Medicine; ATTEND Family Medicine
DX: A08.4 Viral intestinal infection, unspecified (principal); E86.0 Dehydration; R07.89 Other chest pain; R79.89 Other specified abnormal findings of blood chemistry; D72.829 Elevated white blood cell count, unspecified; Z79.51 Long term (current) use of inhaled steroids; Z79.899 Other long term (current) drug therapy; Z88.5 Allergy status to narcotic agent; Z87.891 Personal history of nicotine dependence; Z86.32 Personal history of gestational diabetes; Z86.79 Personal history of other diseases of the circulatory system
CPT/HCPCS: 96376 ×3; 96365; 96361; 96375; 99285; 36415; 94640; 93005; 93306; 80053 ×2; 83690; 83735; 84484; 85025 ×2; 85610; 85730; 81001; G0378 ×2; J1200; J2765 ×2; J2405 ×2; J0295